=== PATIENT | female | born 1950 | race Caucasian/White ===

== ENCOUNTER 2019-02-09 07:36 | Day surgery (SDC) | payer OTHER ==
[2019-02-09 08:11] LABS: Absolute Lymphocytes (CBC) 2.4 K/uL (0.7-4.9)
[2019-02-09] MEDS ORDERED: CEFAZOLIN/SWI 1gm 1 GM/10 ML SYR ONE (08:12)
[2019-02-09] MEDS ORDERED: Ringers Lactate 1,000 ML IV ONE (08:12)
[2019-02-09 08:13] LABS: Urine Appearance CLOUDY; Urine Blood NEGATIVE (NEG); Urine Color ORANGE; Urine Glucose NEGATIVE (NEG); Urine Protein NEGATIVE (NEG); Urine Specific Gravity 1.025 (1.005-1.030)
[2019-02-09 08:18] LABS: Urine Bilirubin NEG (NEG)
[2019-02-09 08:19] LABS: Urine Microscopic Reflex ORDER UMIC
[2019-02-09 08:21] LABS: Basophils % 1.5 % (0-1.3); Hematocrit 39.2 % (36.0-45.0); Lymphocytes % 27.4 % (15.3-44.8); MPV 7.3 fL (7.6-11.3); RBC Red Blood Cell Count 4.72 M/uL (3.86-4.86)
[2019-02-09] MEDS ORDERED: PROPOFOL 200 MG/20 ML VIAL IV ONE (08:34)
[2019-02-09] MEDS ORDERED: FENTANYL CITR 100 MCG/2 ML ONE (08:34)
[2019-02-09] MEDS ORDERED: MIDAZOLAM HCL 2 MG/2 ML INJ ONE (08:35)
[2019-02-09] MEDS ORDERED: LIDOCAINE 1% MPF 5 ML VIAL ONE (08:35)
[2019-02-09 08:42] LABS: Urine Bacteria <20 /HPF (<20); Urine Culture Reflex Order REFLEXED; Urine RBC <5 /HPF (NONE SEEN)
--- NOTE | 2019-02-09 08:51 | RAD REPORT ---
EXAM DESCRIPTION: RAD - Hand Left 3 View - 02/09/2019 8:39 am CLINICAL HISTORY: pre op patient in SDS room 5 Hand pain COMPARISON: Hand Left 3 View dated 03/31/2017 FINDINGS: Mild osteoarthritic changes involve the radiocarpal joint. Multi joint icof-jg-jhegsocv ar thritic changes involve the PIP and DIP joint. No fracture, dislocation or aggressive marrow lesion.
--- NOTE | 2019-02-09 08:52 | RAD REPORT ---
EXAM DESCRIPTION: RAD - Hand Right 3 View - 02/09/2019 8:39 am CLINICAL HISTORY: pre op sds room 5 Hand pain COMPARISON: Hand Right 3 View dated 03/31/2017 FINDINGS: Mild osteoarthritic changes are present. Moderate DIP and PIP osteoarthritis is noted. No acute fracture, dislocation or aggressive marrow lesion.
--- NOTE | 2019-02-09 08:52 | RAD REPORT ---
EXAM DESCRIPTION: RAD - Chest Single View - 02/09/2019 8:39 am CLINICAL HISTORY: pre op Chest pain. COMPARISON: Chest Pa And Lat (2 Views) dated 04/08/2017; Chest Pa And Lat (2 Views) dated 03/18/2017; Chest Pa And Lat (2 Views) dated 03/02/2016 FINDINGS: Portable technique limits examination quality. The lungs are emphysematous but grossly clear. The heart is normal in size. No displaced fractures. IMPRESSION: COPD.
[2019-02-09] MEDS ORDERED: ONDANSETRON 4 MG/2 ML VIAL ONE (09:08)
[2019-02-09] MEDS ORDERED: KETOROLAC 30 MG/ML INJ ONE (09:08)
[2019-02-09] MEDS: HYDROMORPHONE HCL 1 MG/ML INJ ONE ×5 (09:49→10:09)
[2019-02-09 11:08] VITALS: BP 90/51; TEMP 97.8; O2SAT 92
--- NOTE | 2019-02-09 17:24 | EKG ---
Test Date: 2019-02-09 Test Time: 07:54:10 Sheet Metal Supervisor: DIANE MEASUREMENT RESULTS: Intervals: Rate: 71 NH: 172 QRSD: 82 QT: 446 QTc: 484 Makinen: P: 54 NH: 172 QRS: -12 T: 43 INTERPRETIVE STATEMENTS: Normal sinus rhythm Normal ECG Compared to ECG 04/08/2017 15:06:57 T-wave abnormality no longer present Prolonged QT interval no longer present Electronically Signed On 02-09-19 17:21:46 VENDING SUPERVISOR by Ruben Chamorro
--- NOTE | 2019-02-09 20:33 | OP ---
Surgeon: Emiliano Marie MD Preoperative Diagnosis: Left middle finger triggering. Postoperative Diagnosis: Left middle finger triggering. Procedure Performed: A1 amador release. Anesthesia: General. Procedure In Detail: After satisfactory induction of general anesthesia, left hand prepped with Beta dine scrub, Betadine paint, dry sterile drapes applied in the usual manner. The arm was elevated, ex sanguinated with Esmarch. Tourniquet inflated to 250 mmHg. Hand placed on the [place] table. A fel t-tip marking pen was used to outline the incision over the A1 amador. Scalpel used on skin. Dissec tion proceeded down. Ragnell retractor placed. A1 amador was identified, incised with a scalpel. T he tendons were again grasped and delivered through the wound, put through range of motion. No farhan ering. There was inflammation of the tendons with red discoloration consistent with the triggering f lashae. Tourniquet was released. Electrocautery used for hemostasis. Wound closed with 4-0 Prolene vertical mattress simple sutures. Dressed with Xeroform, 2 inch Dianna. The patient tolerated the pr ocedure well and returned to recovery. TUTU/JASWANT Voice ID: [id number] Report ID: [id number]
--- OUTSIDE RECORDS SUMMARY | 2019-02-13 02:41 | XMS REPORT ---
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 without prior episode Assessment Pain of finger of left hand M79.645 Active Assessment Swelling of finger joint of left M25.442 Active hand Problem Abnormal mammogram R92.8 Active Problem Cervical radiculopathy M54.12 Active Problem GERD without esophagitis K21.9 Active Problem Pancolitis K51.00 Active Problem Chronic obstructive pulmonary J44.9 Active disease, unspecified COPD type Problem Depression F32.9 Active Problem Hypothyroidism E03.9 Active Problem Familial hypercholesterolemia E78.01 Active Problem Hyperlipidemia, mixed E78.2 Active Problem Chronic lower back pain M54.5 Active Problem Hyperlipidemia E78.5 Active Problem Myocardial infarction I21.3 Active Problem H/O: CVA (cerebrovascular accident) Z86.73 Active Problem Endometrial cancer C54.1 Active Medications Medication Code Code Instructions Start End Status Dosage System Date Praluent [facility][NOTE 3] 78099468439 75 MG/ML Active 1 im Subcutaneous every 2 weeks Synthroid ND 61766710810 50 MCG Orally Dec 08, Active 1 tablet on Once a day 2018 an empty stomach in the morning (200 + 50 mcg) Prozac [facility][NOTE 3] 42126609412 40 MG Orally Active 1 capsule Once a day Ultram [facility][NOTE 3] 96641327322 50 MG Orally Active 1 tablet as every 6 hrs needed Symbicort ND 78000811215 160-4.5 MCG/ACT Active 2 puffs Inhalation Twice a day Ventolin HFA ND 39092055797 90 MCG/ACT Active 2 puffs as Inhalation every needed 6 hrs Synthroid [facility][NOTE 3] 94355105665 200 MCG Orally Active 1 tablet on Once a day an empty stomach in the morning ( 200 + 50 mcg) Prolia [facility][NOTE 3] 40866708636 60 MG/ML Active as directed Subcutaneous Results No Known Results Summary Purpose eClinicalWorks Submission
--- OUTSIDE RECORDS SUMMARY | 2019-02-13 02:41 | XMS REPORT ---
:1950 [facility] Address [address] [place] [address] Dr. Doe [address] [place] [id number] Care Team Providers Name Role Phone Unavailable Unavailable Unavailable Problems This patient has no known problems. Allergies, Adverse Reactions, Alerts This patient has no known allergies or adverse reactions. Medications This patient has no known medications.
== END 2019-02-09 11:15 | disposition home or self-care (01) ==
LOC: OR 07:36
PROVIDERS: ATTEND Specialist
PROC: 0LN80ZZ Release Left Hand Tendon, Open Approach (ICD-10-PCS; principal; 2019-02-09 09:00)
DX: M65.332 Trigger finger, left middle finger (principal); M32.9 Systemic lupus erythematosus, unspecified; E07.9 Disorder of thyroid, unspecified
CPT/HCPCS: 26055; 93005; 87088; 85025; 87086; 36415; 71045; 73130 ×2; J2704; J2250; J3010; J1170 ×2; J0690; J7120; J2405; 81003; 81015

== ENCOUNTER 2019-10-20 09:23 | Day surgery (SDC) | payer OTHER ==
--- NOTE | 2019-10-19 15:23 | RAD REPORT ---
EXAM DESCRIPTION: Jennifer Julien And Abimbola (2 Views)10/19/2019 2:49 pm CLINICAL HISTORY: Preop. COPD COMPARISON: 2019 FINDINGS: Lungs are mildly hyperaerated The lungs appear clear of acute infiltrate. The heart is normal size IMPRESSION: No acute abnormalities displayed
[2019-10-19 15:24] LABS: Urine Appearance CLEAR; Urine Bilirubin NEGATIVE (NEG); Urine Blood NEGATIVE (NEG); Urine Color YELLOW; Urine Glucose NEGATIVE (NEG); Urine Protein NEGATIVE (NEG); Urine Urobilinogen 0.2 mg/dL (0.2-1.0)
[2019-10-19 15:28] LABS: Urine Microscopic Reflex NO UMIC
[2019-10-19 15:39] LABS: Absolute Lymphocytes (CBC) 3.3 K/uL (0.7-4.9); Basophils % 0.5 % (0-1.3); Hematocrit 40.8 % (36.0-45.0); Lymphocytes % 28.3 % (15.3-44.8); MPV 7.9 fL (7.6-11.3); RBC Red Blood Cell Count 4.86 M/uL (3.86-4.86)
--- OUTSIDE RECORDS SUMMARY | 2019-10-20 09:33 | XMS REPORT | Clinical Summary ---
:1950 Author Organization [facility] Address [address] [place] [id number] Care Team Providers Name Role Phone Biju Pineda Primary Care Provider Allergies Active Allergy Reactions Severity Noted Date Comments [place]aine Other (See Comments) 08/14/2016 SEIZURE Medications Medication Sig Dispensed Refills Start Date End Date Status FLUoxetine (PROzac) 40 Take 40 mg by 0 Active MG capsule mouth daily. levothyroxine Take 175 mcg by 0 Active (SYNTHROID, LEVOXYL) 175 mouth every mcg tablet morning. ALIROCUMAB (PRALUENT PEN Inject under the 0 Active SUBQ) skin every 14 (fourteen) days. Active Problems Not on file Family History Medical History Relation Name Comments No Known Problems Brother No Known Problems Brother No Known Problems Brother No Known Problems Brother Uterine cancer Daughter Cancer Father SMALL CELL CARCI NOMA Cancer Mother SMALL CELL CARCI NOMA No Known Problems Sister Heart failure Sister No Known Problems Sister No Known Problems Sister CABG/Stent Son Diabetes Son Heart attack Son Relation Name Status Comments Brother Alive Brother Alive Brother Alive Brother Alive Daughter Alive Father Mother Sister Alive Sister Alive Sister Alive Sister Alive Son Alive Social History Tobacco Use Types Packs/Day Years Used Date Former Smoker Cigarettes Quit: 04/05/19 17 Alcohol Use Drinks/Week oz/Week Comments No Sex Assigned at Date Recorded Not on file Job Start Date Occupation Industry Not on file Not on file Not on file Travel History Travel Start Travel End No recent travel history available. Last Filed Vital Signs Not on file Plan of Treatment Health Maintenance Due Date Last Done Comments BREAST CANCER SCREENING 2001 COLONOSCOPY SCREENING 2001 SHINGLES VACCINES (#1) 2001 65+ PNEUMOCOCCAL VACCINE (1 of 2 - PCV13) 02/20/2016 INFLUENZA VACCINE 11/04/2019 Implants Implanted Type Area Sales Correspondence Clerk Device Shelf Model / Identifier Expiration Serial / Lot Date Lens Iol Bicnvx 1pc Acryl +21.5d 6x13mm Tecnis - [id number] - [id number] Intraocular Right: ADVANCED 06/04/2018 [id number] / Implanted: Qty: 1 on 09/01/2016 by Mark Ha MD at [facility] Lens Implant Eye [employer] [id number] / INC [id number] Lens Iol Bicnvx 1pc Acryl +22.0d 6x13mm Tecnis - [id number] Intra ocular ADVANCED [id number] 22 0 / Implanted: Qty: 1 on 09/08/2016 by Mark Ha MD at [facility] Lens Implant [employer] / [employer] Results Not on fileafter 10/19/2018 Insurance Payer Benefit Plan / Subscriber ID Effective Phone Address T ype Group Dates MEDICARE MEDICARE PART xxxxxxxxxx 2016-Pre [place], [place] Medicare A AND B sent COMMERCIAL MISC MISC xxxxxxxxxxxxxx 2016-Pre Commercial COMMERCIAL sent Advance Directives For more information, please contact: [phone] Type Date Recorded Patient Pool Hall Inspector Explanati on Advance Directives, Living Will and Medical Power of Account Installation Specialist
--- OUTSIDE RECORDS SUMMARY | 2019-10-20 09:35 | XMS REPORT | Continuity of Care Document ---
:1950 Author Organization [facility] Information Flud Care Team Providers Name Role Phone iCopyright Unavailable Un available Problems Problem Status Onset Classification Date Comments Sourc e Date Reported DX: Active 05/22/19 J47.1=BRONCHIECTAS 20 [place] IS WITH (ACUTE) EX PFT --- CT CHEST Active 05/23/19 WO CONTRAST DX: 19 [place] CHRONIC Generalized 06/06/19 09/07/2017 OPID abdominal 18 [place] tenderness Abnormal reflex 05/13/19 08/14/2017 OPID 18 [place] E66.9, Z71.3, Active 04/19/19 Memori [facility] R11.2 18 [place] ABD PAIN Active 08/29/19 13 [place] NERUOLOGY, Active 08/29/19 DIZZINESS WITH [address] [place] [address] 536.8/787.99/V76.5 Active 01/07/20 M H 1 11 [place] UNK Active 01/07/20 11 [place] Dietary counseling 07/30/[address] [facility] Hypothyroidism Resolved Problem 05/28/2019 (disorder) [place], [place], M H OPID [place] Lupus Resolved Problem 05/28/2019 erythematosus [place], (disorder) [place] ,M H OPID [place] Cerebrovascular Resolved Problem 05/28/2019 accident [place], H (disorder) [place] ,M H OPID [place] Obesity, 09/07/2017 unspecified [place] , OPID [place] Other specified 09/07/2017 OPID diseases of liver [place] Umbilical hernia 09/07/2017 OPID without [place] obstruction or gangrene Benign neoplasm of 09/07/2017 OPID left adrenal gland [place] Body mass index 09/07/2017 (BMI) 32.0-32.9, [place], adult OPID [place] Acquired absence 09/07/2017 [place] of other specified [place] parts 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, cervical region Hypothyroid Resolved Problem 08/31/2012 [place] Lupus Resolved Problem 08/31/2012 [place] Stroke Resolved Problem 08/31/2012 [place] DIZZINESS AND Active MH GIDDINESS [place] OBESITY, Active [facility] UNSPECIFIED [place] DIETARY COUNSELING Active [facility] AND SURVEILLANCE Her martinez NAUSEA WITH Active [facility] VOMITINGNeil UNSPECIFIED SHORTNESS OF Active BREATH [place] CHRONIC Active MH OBSTRUCTIVE [place] PULMONARY DISEASE W BRONCHIECTASIS Active MH WITH (ACUTE) [place] EXACERBATION Medications Medication Details Route Status Patient Ordering Order Source Instructions Provider Date aspirin 81 mg 81 mg, 1 tab, PO Active [facility] MH tablet, PO, Daily, enteric with food, 14 coated tab, Substitution Allowed, ECTABwith food Antivert 25 25 mg, 1 tab, PO Active [facility] MH mg oral PO, Q6H, 4 [facility] tablet tab, Substitution Allowed aspirin 325 325 mg, 1 tab, PO No [facility] MH mg tablet, Route: PO, [facility] enteric Drug form: Active coated ECTAB, Daily, Dosing Weight 63.636, kg, Start date: 08/29/12 4:17:00, Duration: 30 day, Stop date: 09/27/12 9:00:00 morphine 2 mg, 1 mL, IVP No [facility] Sulfate Route: IVP, [facility] Drug form: Active INJ, ONCE, Dosing Weight 63.636, kg, Priority: STAT, Start date: 08/29/12 4:07:00, Stop date: 08/29/12 4:07:00 meclizine 12.5 mg, 1 PO No [facility] MH tab, Route: [facility] PO, Drug form: Active TAB, Q8H, Dosing Weight 63.636, kg, Priority: STAT, Start date: 08/29/12 4:07:00, Duration: 30 day, Stop date: 09/28/12 0:00:00 Zofran 4 mg, 2 mL, IVP No [facility] Route: IVP, [facility] Drug form: Active INJ, Q4H, Dosing Weight 63.636, kg, PRN Nausea, Priority: STAT, Start date: 08/29/12 4:07:00, Duration: 30 day, Stop date: 09/28/12 4:06:00 labetalol 10 mg, 2 mL, IVP No [place] Route: IVP, [address] Drug form: Active INJ, Q10Min, Dosing Weight 63.636, kg, PRN Hypertension, Start date: 08/29/12 4:07:00, Duration: 30 day, Stop date: 09/28/12 4:06:00, For SBP > 180mmHg and/or DBP > 105mmHg enoxaparin 63.636 mg, SUB-Q No [facility] Route: SUB-Q, [address] Drug form: Active INJ, ONCE, Dosing Weight 63.636, kg, Priority: STAT, Start date: 08/29/12 3:42:00, Stop date: 08/29/12 3:42:00 meclizine 25 mg, Route: PO No [facility] PO, Drug form: [address] TAB, ONCE, Active Dosing Weight 63.636, kg, Priority: STAT, Start date: 08/29/12 0:48:00, Stop date: 08/29/12 0:48:00 ondansetron 4 mg, Route: IVP No [facility] IVP, ONCE, [facility] Dosing Weight Active 63.636, kg, Priority: STAT, Start date: 08/29/12 0:48:00, Stop date: 08/29/12 0:48:00 Saline Flush 5 ml, Route: IVP No [facility] 0.9% IVP, Drug [facility] Form: INJ, Active Dosing Weight 63.636, kg, PRN, PRN Line Flush, Start date: 08/29/12 0:48:00, Duration: 30 day, Stop date: 09/28/12 0:47:00 Tylenol 325 1 tab, PO, PO Active mg oral Q4H, PRN, 60 011 [place] tablet tab, Fever, Substitution Allowed Synthroid 125 1 tab, PO, PO Active mcg (0.125 Daily, 30 tab, 0[address] [place] mg) oral Substitution tablet Allowed, TAB Lactated 1,000 mL, IV No Carlos Ringers IV Rate: 40 Longer 011 [facility] 1,000 mL ml/hr, Infuse Active 1,000 mL over: 25 hr, Route: IV, Total Volume: 1,000, Start date: 01/22/11 7:01:00, Duration: 30 day, Stop date: 02/21/11 7:00:00 influenza 0.5 ml, Route: IM No [facility] virus IM, Drug form: Longer 006 [place] vaccine, INJ, Start Active inactivated date: 03/09/06 17:00:00, Stop date: 03/09/06 17:00:00 Allergies, Adverse Reactions, Alerts Substance Category Reaction Severity Reaction Status Date Comments S ource type Reported codeine Assertion Propensity Active MH to adverse [facility] reactions to drug Immunizations Immunization Date Site Status Last Comments Source Given Updated influenza virus Right completed [facility] vaccine, 6 deltoid [place],[facility] inactivated [facility], OPID [place]ie and influenza virus completed [facility] [place] vaccine, 6 inactivated Results Order Name Results Value Reference Date Interpretation Comments Lillie rce Range CHEMISTRY Total CK 113 12 - 191 08/29 Normal /2012 [facility] CHEMISTRY Troponin-I <0.02 0.00 - 08/29 Normal 0.40 [facility] CHEMISTRY CK MB Index 1.0 0.0 - 2.5 08/29 Normal [facility] CHEMISTRY CK MB 1.1 0.5 - 3.6 08/29 Normal [facility] Microbiolo Culture: 08/29 gy Urine /2012 [facility] URINALYSIS UA Protein Negative mg/dL Negative 08/29 Normal (08/29/2012 02:53:00) [place] URINALYSIS UA Glucose Negative mg/dL Negative 08/29 NA MH *NA* /2012 [facility] (08/29/2012 02:53:00) URINALYSIS UA Ketones Trace mg/dL Negative 08/29 ABN MH *ABN* /2012 [facility] (08/29/2012 02:53:00) URINALYSIS UA Bili Negative Negative 08/29 NA *NA* /2012 [facility] (08/29/2012 02:53:00) URINALYSIS UA pH 5.0 5.0 - 8.0 08/29 Normal [facility] URINALYSIS UA Mucus Few /LPF None Seen 08/29 NA *NA* /2012 [facility] (08/29/2012 02:53:00) URINALYSIS UA Blood Small Negative 08/29 ABN *ABN* /2012 [facility] (08/29/2012 02:53:00) URINALYSIS UA Leuk Est Trace Negative 08/29 ABN *ABN* [facility] (08/29/2012 02:53:00) URINALYSIS UA Nitrite Negative Negative 08/29 Normal (08/29/2012 02:53:00) [place] URINALYSIS UA RBC 1 0 - 2 08/29 Normal [facility] URINALYSIS UA Sq Epi Occasional /LPF Few 08/[address] [facility] *NA* [facility] (08/29/2012 02:53:00) URINALYSIS UA WBC 4 0 - 5 08/29 Normal [facility] URINALYSIS UA 0.1 - 1.0 08/[address] [facility] Urobilinogen [facility] URINALYSIS UA Spec Grav 1.018 <=1.030 08/29 Normal [facility] URINALYSIS UA Color Yellow Yellow 08/[address] [facility] *NA* [facility] (08/29/2012 02:53:00) URINALYSIS UA Turbidity Clear Clear 08/29 Normal (08/29/2012 02:53:00) [facility] CK 118 12 - 191 08/29 Normal [facility] CHEMISTRY CK MB 0.6 0.5 - 3.6 08/29 Normal [facility] CHEMISTRY Troponin-I <0.02 0.00 - 08/29 Normal 0.40 [facility] CHEMISTRY eGFR 61 08/29 NA <sup>1</sup>R esult [place] Comment: The eGFR is calculated using the CKD-EPI formula. In most young, healthy individuals the eGFR will be >90 mL/min/1.73m2 . The eGFR declines with age. An eGFR of 60-89 may be normal in some populations, particularly the elderly, for whom the CKD-EPI formula has not been extensively validated. Use of the eGFR is not recommended in the following populations:& lt;br/>
I ndividuals with unstable creatinine concentration s, including patients and those with serious co-morbid conditions.<b r/>
Patie nts with extremes in muscle mass or diet.

The data above are obtained from the National Kidney Disease Education Program (NKDEP) which additionally recommends that when the eGFR is used in patients with extremes of body mass index for purposes of drug dosing, the eGFR should be multiplied by the estimated BMI. CHEMISTRY ALT 28 0 - 65 08/29 Normal [facility] CHEMISTRY Albumin Lvl 3.8 3.5 - 5.0 08/29 [facility] CHEMISTRY AGAP 11.5 10.0 - 08/29 Normal MH 20.0 [facility] CHEMISTRY AST 22 0 - 37 08/29 [facility] CHEMISTRY Bili Total 0.3 0.2 - 1.3 08/29 [facility] CHEMISTRY Alk Phos 79 39 - 136 08/29 [facility] CHEMISTRY B/C Ratio 19 6 - 25 08/29 [facility] CHEMISTRY A/G Ratio 1.0 0.7 - 1.6 08/29 [facility] CHEMISTRY Globulin 3.9 2.0 - 4.0 08/29 [facility] CHEMISTRY Total 7.7 6.4 - 8.4 08/29 Normal [facility] CHEMISTRY Calcium Lvl 8.9 8.5 - 10.5 08/29 [facility] CHEMISTRY CO2 26 24 - 32 08/29 [facility] CHEMISTRY Creatinine 1.0 0.5 - 1.4 08/29 [facility] CHEMISTRY BUN 19 7 - 22 08/29 [facility] CHEMISTRY Glucose Lvl 105 70 - 99 08/29 HI <sup>2</sup>I nterpretive [facility] Data: Adult reference range values reflect the clinical guidelines
of the [place] [employer]. CHEMISTRY Potassium 3.5 3.5 - 5.1 08/29 Normal MH [facility] CHEMISTRY Sodium Lvl 140 135 - 145 08/29 [facility] CHEMISTRY Chloride Lvl 106 95 - 109 08/29 [facility] CHEMISTRY CK MB Index 0.5 0.0 - 2.5 08/29 [facility] HEMATOLOGY MCHC 33.2 32.0 - 08/29 Normal 36.0 /2012 [facility] HEMATOLOGY RDW 14.7 11.5 - 08/29 HI 14.5 /2012 [facility] HEMATOLOGY Platelet 301 133 - 450 08/29 Normal /2012 [facility] HEMATOLOGY MPV 6.9 7.4 - 10.4 08/29 LOW /2012 [facility] HEMATOLOGY Hgb 13.9 12.0 - 08/29 Normal 16.0 /2012 [facility] HEMATOLOGY WBC 12.2 3.7 - 10.4 08/29 HI /2012 [facility] HEMATOLOGY RBC 4.73 4.20 - 08/29 Normal MH 5.40 /2012 [facility] HEMATOLOGY MCH 29.3 27.0 - 08/29 Normal 31.0 /2012 [facility] HEMATOLOGY MCV 88.3 81.0 - 08/29 Normal 99.0 /2012 [facility] HEMATOLOGY Hct 41.8 36.0 - 08/29 Normal 48.0 /2012 [facility] HEMATOLOGY Lymphocytes 21.0 20.0 - 08/29 Normal 40.0 /2012 [facility] HEMATOLOGY Segs 72.5 45.0 - 08/29 Normal 75.0 /2012 [facility] HEMATOLOGY Monocytes 4.2 2.0 - 12.0 08/29 Normal /2012 [facility] HEMATOLOGY Basophils 0.5 0.0 - 1.0 08/29 Normal /2012 [facility] HEMATOLOGY Lymphocytes 2.6 1.0 - 5.5 08/29 Normal # /2012 [facility] HEMATOLOGY Eosinophils 1.8 0.0 - 4.0 08/29 Normal /2012 [facility] Segs-Bands # 8.8 1.5 - 8.1 08/29 HI /2012 [facility] Basophils # 0.1 0.0 - 0.2 08/29 Normal [facility] HEMATOLOGY Monocytes # 0.5 0.0 - 0.8 08/29 Normal /2012 [facility] HEMATOLOGY Eosinophils 0.2 0.0 - 0.5 08/29 Normal /2012 [facility] Pathology Reports No Data Provided for This Section Diagnostic Reports Report Value Date Source Chest wo contrast CT Radiation Dose CTDIVOL = 0 (mGy): DLP = 160.16 (mGy-cm) 05/26/2019 [facility] PROCEDURE INFORMATION: Exam: CT Chest Without Contrast Exam date and time: 05/26/2019 10:26 AM Age: 69 years old Clinical indication: /bronchiectasis. Follow up for pneumonia and other lung issues. TECHNIQUE: Imaging protocol: Computed tomography of the chris st without contrast. Total DLP: 160.16 mGy-cm Radiation optimization: All CT scans at this facility use at least one of these dose optimization techniques: automated exposure control; mA and/or kV adjustment per patient size (includes targeted e xams where dose is matched to clinical indication); or iterative reconstructio n. COMPARISON: CHEST WO CONTRAST CT 05/31/2018 2:59 PM CHEST WO CONTRAST CT 09/09/2017 2:01 PM FINDINGS: Lungs: There is evidence of mild centrilobular e mphysema. There are areas of mild stable linear scar formation and subtle dede und-glass attenuation on both sides. No mass or consolidation. Mild br onchiectasis. No significant bronchial wall thickening. Localized ground-glass attenuat ion is again demonstrated within the superior segment of the right lower lobe with estimated diameter of 8 mm. There is suggestion 3 mm solid component a long the right lateral aspect of this region on axial image 108 of ser ies 4 which is not definitely apparent on prior exams. Pleural space: No pleural abnormality. Heart: Mild coronary artery calcification. No pe ricardial disease. Mediastinum: No mass or inflammation. Aorta: Mild atherosclerotic calcification is dem onstrated within the aorta. Lymph nodes: No enlarged lymph nodes. Liver: An incidental left hepatic cyst is noted. Gallbladder and bile ducts: The gallbladder is a bsent. Bones/joints: Other than degenerative changes, t he bones are intact. No acute skeletal process or focal bone lesion. Soft tissues: No significant abnormality within the extra thoracic soft tissues. Other findings: There is a s table circumscribed density on the same image which may be calcified. IMPRESSION: 1. Centrilobular emphysema. 2. Stable diameter of a ground-glass nodule prev iously described within the superior segment of the righ t lower lobe with interval development of a solid 3 mm component since 05/31/2018. Follow-up CT is r ecommended in 6 months. 3. Mild bronchiectasis with areas of stable mild parenchymal scarring. Jose Lorenzo MD On 05/27/2019 08:44:50; -[facility] [id number] Abdomen w IV contrast Clinical indication: - abnormal CT sc an, liver cyst 10/31/[address] [place] [address] Comparison: CT abdomen pelvis 06/01/2017 TECHNIQUE: Volumetric CT acq uisition of the abdomen after the intravenous administration of contrast, in the arterial and venous phases of contrast enhancement. Axial, coronal and sagittal reconstructions. IV contrast: 150 mL Omnipaque 300 Enteric contrast: Water CT imaging performed at this location utilizes radiation dose optimization techniques which include one or more of the following: -Automated exposure control -Adjustment of the mA and/or kV according to pat ient size -Use of iterative reconstruction technique CT Radiation Dose DLP 596.54 mGy-cm FINDINGS: LOWER THORAX: Lipomatous hyp ertrophy of the interatrial septum in the heart is noted. LIVER: A lobulated cyst in h epatic segment 4B measures 1.7 x 1.7 cm, stable in size from the prior exam. There is an adjacent 0.6 cm hypodense lesion which is too small to characterize (series 2 image 1 13), which is stable and likely represents a hep atic cyst. BILIARY TREE: No intra- or extrahepatic biliary ductal dilation. GALLBLADDER: The gallbladder is surgically absen t. PANCREAS: Normal enhancement of the pancreatic p arenchyma. SPLEEN: Normal. ADRENALS: A 1 cm left adrena l nodule is incompletely characterized on this exam, but was previously characterized as an adrenal adenoma on prior noncontrast CT. No significant change in size from the prior exam. The right adrenal is unremarkable. KIDNEYS AND URETERS: The kid neys demonstrate symmetric uptake of intravenous contrast. There is no hydronephrosis. GASTROINTESTINAL TRACT: The stomach is unremarkable. A small periampullary duodenal diverticulum is seen. Visualized portions of small bowel are normal in caliber. Visualized portions of the colon are unremarkable. PERITONEUM AND RETROPERITONE UM: No ascites or free air. No other fluid collection. LYMPH NODES: No abdominal lymphadenopathy. VASCULATURE: Mild aortic ath erosclerotic calcifications are present. The main portal vein is patent. The IVC is unremarkable. BONES: No acute osseous abnormality. SOFT TISSUES: A fat-containing supraumbilical ve ntral hernia is present. IMPRESSION: 1. Stable hepatic cysts. 2. Fat-containing supraumbilical ventral hernia . 3. Stable adrenal adenoma. 4. Small periampullary duodenal diverticulum. SL: [id number] Chest wo contrast CT CLINICAL INDICATION: 68 year s old Female with - R06.02 Shortness of breath, J44.1 Chronic obstructive pulmonary disease with (acute) exacerbation. 05/31/2018 [facility] COMPARISON: CT chest 09/09/2017 TECHNIQUE: Sequential trans- axial images were obtained through the chest and upper abdomen without intravenous contrast. Coronal and sagittal reconstructions were obtained. CT imaging performed at this location utilizes radiation dose optimization techniques which include one or more of the following: -Automated exposure control -Adjustment of the mA and/or kV according to pat ient size -Use of iterative reconstruction technique CT Radiation Dose DLP 237 mGy-cm FINDINGS: LOWER NECK AND SOFT TISSUES: No enlarged lymph n ode is seen. MEDIASTINUM: Normal size of the heart is noted. Minimal coronary artery calcifications. No pericardial effusion is identified. The thoracic aorta is normal in caliber. Minimal calcification in the aorta and proximal great vessels. PULMONARY PARENCHYMA: Mild e mphysematous changes. Pleural parenchymal band in the anterior right upper lobe likely representing scarring/subsegmental atelectasis. Mild scarring in the right middle lobe and lingula. Stable mild sca rring in the superior left lower lobe. No focal consolidation is seen. Stable 8 mm ground glass nodule in the right lower lobe (series 4, image 62) with adjacent calcified gr anuloma. Small patch of sub pleural groundglass in the left lower lobe (series 4, image 71). A few additional scattered regions of vague groundglass opacity are noted in the bilateral lower lobes. No pleural effusion or pneumothorax is identified. UPPER ABDOMEN: Prior cholecy stectomy. 2.0 cm liver cyst. Visualized upper abdominal structures are otherwise unremarkable in appearance. MUSCULOSKELETAL: No acute os seous abnormality is seen. No destructive lytic or blastic osseous lesion is noted. Degenerative changes in the spine. IMPRESSION: 1. Mild emphysema. 2. Minimal scattered fibrotic changes and scarri ng, not significant changed. 3. A few regions of subtle p atchy groundglass noted scattered in the bilateral lower lobes which may represent a mild pneumonitis. 4. Stable ground glass nodul e in the superior right lower lobe. Follow-up CT suggested in 1 year to document stability/resolution. SL: [id number] Chest wo contrast CT CT THORAX WITHOUT IV CONTRAST 09/09/2017 JEM DUMONT [place] HISTORY: ; J44.1 Chroni c obstructive pulmonary disease with (acute) exacerbation;J84.10 Pulmonary fibrosis, unspecified; R06.02 Shortness of breath - SOB with cough and congestion for the past 3 months; TECHNIQUE: Multiple contiguo us axial images of the chest were performed. Coronal and sagittal reformatted images were obtained. IV CONTRAST: No. CT Radiation Dose: DLP = 447.46 mGy-cm COMPARISON: CT abdomen/pelvi s dated 06/01/2017 and chest radiography dated 03/08/2006 FINDINGS: LUNGS AND PLEURA: The lungs are mildly emphysematous. Mild fine interstitial fibrotic scarring in the bilateral upper lungs. No subpleural fibrosis. No parenchymal architectural distortion. No pulmonary honeycombing. Mild linear s carring or atelectasis in the right middle lobe and lingula. No tree-in-bud interstitial opacities to suggest chronic small airway infection/inflammation. No bronchiectasis. No endobronchial mucous plug ging. No airspace infiltrate to suggest pneumonia or pulmonary edema. No suspicious pulmonary nodule. No pleural effusion or pneumothorax. MEDIASTINUM: No mediastinal mass, adenopathy, or fluid collection. Trace aortic and great vessel origin atherosclerotic calcification. Heart size normal. No pericardial effusion. BASE OF NECK, UPPER ABDOMEN, SOFT TISSUES, AND BONES: Thyroid gland is mildly atrophic. Neck base soft tissues are otherwise normal. The visualized portion of the upper abdominal contents demonstrates c holecystectomy and a small b enign liver cyst. No acute osseous abnormality or aggressive osseous lesion. IMPRESSION: 1. Mild emphysema. 2. Mild fine interstitial fi brotic scarring in the upper lungs. No subpleural fibrosis, subpleural honeycombing, or architectural distortion. 3. Mild linear scarring or atelectasis in the ri ght middle lobe and lingula. 4. Mild atrophy of the thyro id gland, trace atherosclerotic calcification, and cholecystectomy. SL: [id number] Abdomen/Pelvis w/wo CT ABDOMEN/PELVIS WITHOUT AND WITH IV CONTRA ST 06/01/2017 TIM [place] IV contrast CT HISTORY: Generalized abdomin al tenderness; 67 year old female reports upper abdominal pain, diarrhea, rectal bleeding, history of cholecystectomy TECHNIQUE: Axial imaging of abdomen and pelvis with multiplanar reformations. IV CONTRAST: 100cc Omnipaque. GI CONTRAST: Yes. CT Radiation Dose: DLP = 2219.58 mGy-cm COMPARISON: None available. FINDINGS: LOWER CHEST: The lung bases are clear. LIVER, BILIARY, PANCREAS, SP SAMIRA, AND ADRENALS: Small benign cyst in the right hepatic lobe inferiorly measures 2.0 cm. The liver is otherwise normal. Cholecystectomy is noted. No biliary dilation. The spleen, pancreas, and right adrenal gland are normal. There is a small 0.9 cm benign adenoma of the left adrenal gland (noncontrast Hounsfield density -13). GENITOURINARY: Normal kidney s. No urinary calculus. No hydronephrosis. Normal urinary bladder. Changes of hysterectomy. STOMACH AND BOWEL AND APPEND IX: Normal stomach and duodenum. Normal small bowel. No bowel obstruction. Evaluation of the rectum, sigmoid colon, and left colon is limited by colonic decompression. There is suggestion of mild diffus e colonic wall thickening and mucosal hyperenhancement suspicious for a mild colitis. No pericolonic inflammatory fat stranding. No abscess or evidence of perforation. No large bowel obstruction. Appendix not visualized. OTHER SOFT TISSUES, VESSELS, AND BONES: There is a small fat-containing umbilical hernia which measures 3 x 2 x 2 cm. No ascites, adenopathy, or pneumoperitoneum. Trace aortoiliac calcification. No acut e osseous abnormality or aggressive osseous lesi on. IMPRESSION: 1. Probable mild diffuse col onic wall thickening with mild mucosal hyperenhancement suggestive of mild pancolitis. Findings suspicious for inflammatory bowel disease or possibly infectious colitis. Recommend correlation with colonoscopy. 2. Small benign liver cyst, cholecystectomy, small benign left adrenal adenoma, hysterectomy, small fat-containing umbilical hernia, trace aortoiliac calcification. SL: [id number] Spine cervical wo Patient Name: ZA GARCES 05/08/2017 TIM [place] contrast MRI : 1950; Age: 67 years y/o Female MR: [id number] Study: Spine cervical wo contrast MRI 05/08/2017 9 :07 AM [facility] Ordering Physician: Aide Bliss MD Clinical Indication: R29.2 Abnormal reflex -neck and left shoulder pain for complete of months.; Comparison: None TECHNIQUE: Multiplanar T1, T 2, and STIR weighted MRI of the cervical spine is performed. FINDINGS: There is 2 mm anterolisthesi s at C5-C6 and C6-C7. Otherwise, the alignment is maintained. The vertebral bodies are normal in height. The disc spaces are well- maintained. The marrow signal is unremarkab le. The craniocervical junct ion is unremarkable. The cervical cord is normal in signal and caliber. The paravertebral soft tissues are unremarkable. Changes by levels: C2-C3: There is no disc bulg e or herniation. There is no stenosis. The facet joints are unremarkable.. C3-C4: Moderate left facet a rthrosis and periarticular enhancement suggesting active inflammation/synovitis. Facet hypertrophic changes and mild uncovertebral arthrosis result in moderate left foraminal stenosis and possible impin gement of left C4 nerve root. No spinal canal stenosis. C4-C5: Mild facet arthrosis. No canal or foramin al stenosis. C5-C6: Mild facet arthrosis and trace anterolisthesis. No canal or foraminal stenosis. C6-C7: Minimal facet arthrosis and trace anterol isthesis. No stenosis. C7-T1: There is no disc bulg e or herniation. There is no stenosis. The facet joints are unremarkable. . IMPRESSION: Moderate left facet arthrosi s at C3-C4 with left foraminal narrowing and possible mass effect on left C4 nerve root. There is periarticular edema suggesting active synovitis. Mild degenerative changes at the other levels wi thout stenosis. Stomach emptying NM GASTRIC EMPTYING SCAN: 04/23/2017 Sandra Trejo HISTORY: Nausea and vomiting. TECHNIQUE: The patient inges mario eggs laced with 1 mCi of technetium 99m sulfur colloid. Anterior planar imaging over the stomach was done up to 3 hours. Quantitative values and time/activity curves were generated. FINDINGS: The T-1/2 is 68 mi nutes (normal less than 90 minutes). There is 31% emptying at 30 minutes, 48% emptying at 60 minutes, 65% emptying at 90 minutes, 81% emptying at 2 hours, and 96% emptying at 3 hours (times and percenta ges are approximated). The time/activity curve shows smooth curvilinear descent over the course of the study. IMPRESSION: Normal gastric emptying. [id number] Carotid artery BILATERAL CAROTID ULTRASOUND: 08/29/2012 [facility] bilateral Duplex US HISTORY: Rule out stroke. PROCEDURE: Triplex Doppler e valuation of the cervical carotid and vertebral arteries was done. Stenosis estimates are based on Consensus Panel Criteria. FINDINGS: There is no evidence of significant pl aque or dissection. The peak systolic velocity i n the right internal carotid artery is 65 cm/sec, with a right systolic velocity ratio of 0.8. The peak systolic velocity i n the left internal carotid artery is 96 cm/sec, with a left systolic velocity ratio of 0.9. Antegrade flow is demonstrated in the vertebral arteries. IMPRESSION: No evidence of significant carotid stenosis. SL:13 Brain wo contrast MRI MRI BRAIN WITHOUT CONTRAST 08/29/2012 [facility] CLINICAL INFORMATION: Vertigo. possible thrombus seen in MCA on CT. COMPARISON: CT head of this date. TECHNIQUE: Multiecho multipl gurjit images of the brain were done without contrast injection. FINDINGS: The ventricles, sulci and ci sterns are appropriate for age. There are a few scattered nonspecific T2/FLAIR signal abnormality likely reflecting minimal chronic small vessel ischemic change. No mass, he morrhage or collection is id entified. The pituitary gland is normal in size. The cerebellar tonsils are normal in position. There is no restricted diffusion. Normal T2 flow voids are present. IMPRESSION: 1. No definite acute infarct or intracranial hem orrhage. No mass or neoplasm. SL: 12 Brain without MRA BRAIN 08/29/2012 [facility] contrast MRA INDICATION: vertigo/possible thrombus seen in M CA on CT TECHNIQUE: 3D MRA time of flight images were do ne of the [place] of [place]. COMPARISON: MRI and CT brain of this date. FINDINGS: MRA BRAIN: The petrous, cavernous and s upraclinoid portions of the internal carotid arteries are normal in contour and caliber. The anterior, middle and posterior cerebral arteries are normal in shape. Small bila teral P-comm are present. Th e basilar artery is intact. There is no stenosis or branch occlusion. No aneurysm is identified. IMPRESSION: Grossly normal [place]. No evidence of an aneurysm. SL: [address] HEAD WITHOUT CONTRAST. 08/29/2012 [facility] CLINICAL INDICATION: Behavioral changes. DIZZY NAUSEA S/P KNEE SURGERY. COMPARISON: [None]. TECHNIQUE: Multiple contiguo us axial images of the brain were performed without IV contrast. FINDINGS: Nonspecific asymme tric hyperdense right MCA branch may be atherosclerotic change versus MCA branch thrombus. Ventricles and subarachnoid spaces are appropriate for age. No acute territorial in farction or intracranial hem orrhage. No extra-axial fluid collection. Han- white distinction is preserved. No mass, mass-effect, or midline shift. Visualized paranasal sinuses are unremarkable. IMPRESSION: Nonspecific asym metric hyperdense right MCA branch may be atherosclerotic change versus MCA branch thrombus. Please correlate clinically for neurologic symptoms. Otherwise, no acute intracranial process detected. SL: 12 Consultation Notes No Data Provided for This Section Discharge Summaries No Data Provided for This Section History and Physicals No Data Provided for This Section Vital Signs Vital Sign Value Date Comments Source BMI Calculated 30.73 05/31/2018 [facility] Weight 71.364 05/31/2018 [facility] Height 152.4 cm 05/31/2018 [facility] Heart Rate 56 08/29/2012 [facility] Temperature Oral (F) 98.3 F 08/29/2012 [facility] Rate 18 08/29/2012 [facility] Systolic (mm Hg) 102 08/29/[facility] Diastolic (mm Hg) 63 08/29/[address] Weight 63.63 08/29/2012 [facility] Height 162.5 cm 08/29/2012 [facility] Systolic (mm Hg) 109 08/29/2012 [facility] Resp[facility] Rate 18 08/29/2012 [facility] Heart Rate 54 08/29/2012 [facility] Temperature Oral (F) 98.1 F 08/29/2012 [facility] Diastolic (mm Hg) 72 08/29/[address] Respitory Rate 18 08/29/2012 [facility] Temperature Oral (F) 97.8 F 08/29/2012 [facility] Rate 52 08/29/2012 [facility] Diastolic (mm Hg) 70 08/29/[address] Systolic (mm Hg) 111 08/29/2012 [facility] Height 152.4 cm 08/29/2012 [facility] Weight 65 08/29/2012 [facility] Weight 63.636 08/29/2012 [facility] Height 162.56 cm 08/29/2012 [facility] Diastolic (mm Hg) 52.0 01/22/[address] Systolic (mm Hg) 94.0 01/22/2011 [facility] Rate 18.0 01/22/2011 [facility] Heart Rate 85.0 01/22/2011 [facility] Diastolic (mm Hg) 72.0 01/22/[address] Systolic (mm Hg) 113.0 01/22/2011 [facility] Respitory Rate 19.0 01/22/2011 [facility] Heart Rate 63.0 01/22/2011 [facility] Diastolic (mm Hg) 51.0 01/22/[address] Respitory Rate 18.0 01/22/2011 [facility] Systolic (mm Hg) 99.0 01/22/2011 [facility] Heart Rate 111.0 01/22/2011 [facility] Temperature Oral (F) 98.8 F 01/20/2011 [facility] Weight 58.182 01/20/2011 [facility] Height 152.4 cm 01/20/2011 [facility] Encounters Location Location Encounter Encounter Reason Attending ADM DC Stat us Source Details Type Number For Provider Date Date Visit GASTON [id number] DEBBIE 01/22 01/22 Discharg [facility] [address] [facility] OU [id number] NERUOLOG HERO BROOKS 08/29 08/29 Active [facility] 4 Y, /2012 [facility] [address] S WITH ABNORMAL CT [facility] Outpatient [id number] Debbie 04/23 04/24 [facility] 5 [facility] Outpt Diag [id number] Aide 05/08 05/09 [facility] 0 [facility] [place] [facility] Outpt Diag [id number] Debbie 06/01 06/02 [facility] Outpt Diag [id number] Rajesh Lechin 09/09 09/10 [facility] [place] [facility] Outpatient [id number] Rajesh Lechin 05/31 06/01 [facility] Outpt Diag [id number] Debbie 10/31 11/01 [facility] [place] [facility] Outpatient [id number] Rajesh Lechin 05/26 05/27 [facility] Procedures Procedure Code Date Perfomer Comments Source Arthroscopy of [id number] Hemalatha martinez, knee [facility], [facility] [place] Arthroscopy of [id number] [facility] knee Assessment and Plan No Data Provided for This Section Plan of Care No Data Provided for This Section Social History Social History Date Source Social History TypeResponse 05/27/2019 [facility] Social History TypeResponse 11/01/2018 [facility] [place] Social History TypeResponse 04/24/[address] [facility] Family History No Data Provided for This Section Advance Directives No Data Provided for This Section Functional Status No Data Provided for This Section
--- OUTSIDE RECORDS SUMMARY | 2019-10-20 09:37 | XMS REPORT ---
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 Problem Current mild episode of major F32.0 Active depressive disorder without prior episode Problem Pancolitis K51.00 Active Problem Abnormal mammogram R92.8 Active Problem Abnormal mammogram of left breast R92.8 Active Problem Hyperlipidemia, mixed E78.2 Active Problem Chronic lower back pain M54.5 Acti ve Problem Hyperlipidemia E78.5 Active Problem H/O: CVA (cerebrovascular accident) Z86.73 Active Problem Kidney stone N20.0 Active Problem Familial hypercholesterolemia E78.01 Active Problem Myocardial infarction I21.3 Active Problem Osteoporosis, unspecified M81.0 Ac tive osteoporosis type, unspecified pathological fracture presence Problem Endometrial cancer C54.1 Active Problem Chronic obstructive pulmonary J44.9 Active disease, unspecified COPD type Medications No Known Medications Results No Known Results Summary Purpose [employer] Submission
--- OUTSIDE RECORDS SUMMARY | 2019-10-20 09:37 | XMS REPORT ---
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 Assessment Current moderate episode of major F32.1 Active depressive disorder without prior episode Assessment Familial hypercholesterolemia E78.01 Active Assessment Fibromyalgia M79.7 Active Assessment Chronic obstructive pulmonary J44.9 Active disease, unspecified COPD type Assessment Osteoporosis, unspecified M81.0 Ac tive osteoporosis type, unspecified pathological fracture presence Assessment Ulcerative (chronic) pancolitis K51.00 Active without complications Problem Osteoporosis, unspecified M81.0 Ac tive osteoporosis type, unspecified pathological fracture presence Assessment Encounter for screening mammogram Z12.31 Active for malignant neoplasm of breast Problem Chronic obstructive pulmonary J44.9 Active disease, unspecified COPD type Assessment Medicare annual wellness visit, Z00.00 Active subsequent Problem Fibromyalgia M79.7 Active Problem Cervical radiculopathy M54.12 Activ e Problem GERD without esophagitis K21.9 Act tono Problem Current moderate episode of major F32.1 Active depressive disorder without prior episode Problem Noncompliance with dietary Z91.11 A ctive restriction Problem Hypothyroidism E03.9 Active Problem Depression F32.9 Active Problem 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 Problem Current mild episode of major F32.0 Active depressive disorder without prior episode Problem Pancolitis K51.00 Active Problem Abnormal mammogram R92.8 Active Problem Abnormal mammogram of left breast R92.8 Active Assessment Chronic lower back pain M54.5 Acti ve Problem Hyperlipidemia, mixed E78.2 Active Assessment Hypothyroidism E03.9 Active Problem Chronic lower back pain M54.5 Acti ve Problem Hyperlipidemia E78.5 Active Assessment Abnormal mammogram of left breast R92.8 Active Problem H/O: CVA (cerebrovascular accident) Z86.73 Active Problem Kidney stone N20.0 Active Problem Familial hypercholesterolemia E78.01 Active Problem Myocardial infarction I21.3 Active Problem Endometrial cancer C54.1 Active Medications Medication Code Code Instructions Start End Status Dosage System Date Date Synthroid [facility] 83974886491 300 MCG Orally Active 1 t ablet in the Once a day morning on an empty stomach (NAME BRAND ONLY) Prozac [facility] 84760474576 40 MG Orally Active 1 capsu le Once a day Ventolin HFA ND 61344502103 90 MCG/ACT Active 2 pu ffs as Inhalation needed every 6 hrs Prolia [facility] 24651682807 60 MG/ML Active INJECT 1ML (60MG DOSE) SUBCUTANEOUSLY EVERY 6 MONTHS. Ultram [facility] 58460872870 50 MG Orally Active 1 table t as every 6 hrs needed Praluent ND 53714001042 75 MG/ML Active 1 im Subcutaneous every 2 weeks Symbicort ND 26065759689 160-4.5 MCG/ACT Active 2 puffs Inhalation Twice a day Results No Known Results Summary Purpose eClinicalWorks Submission
--- OUTSIDE RECORDS SUMMARY | 2019-10-20 09:37 | XMS REPORT ---
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 Problem Current [...] osteoporosis type, unspecified pathological fracture presence Assessment Osteoporosis, unspecified M81.0 Ac tive osteoporosis type, unspecified pathological fracture presence Problem Endometrial cancer C54.1 Active Problem Chronic obstructive pulmonary J44.9 Active disease, unspecified COPD type Medications Medication Code Code Instructions Start End Status Dosage System Date Date Synthroid [facility] 44109106905 300 MCG Orally Active 1 t ablet in the Once a day morning on an empty stomach (NAME BRAND ONLY) Prozac [facility] 15793128502 40 MG Orally Active 1 capsu le Once a day Symbicort ND 00727658787 160-4.5 MCG/ACT Active 2 puffs Inhalation Twice a day Praluent ND 24872151403 75 MG/ML Active 1 im Subcutaneous every 2 weeks Ultram [facility] 45268871675 50 MG Orally Active 1 table t as every 6 hrs needed Prolia [facility] 31512420796 60 MG/ML Active INJECT 1ML (60MG DOSE) SUBCUTANEOUSLY EVERY 6 MONTHS. Ventolin HFA [facility] 04205459444 90 MCG/ACT Active 2 pu ffs as Inhalation needed every 6 hrs Results No Known Results Summary Purpose [employer]ClinicalWorks Submission
--- OUTSIDE RECORDS SUMMARY | 2019-10-20 09:37 | XMS REPORT | Continuity of Care Document ---
:1950 Author Organization [facility] t Address [address] [place] [id number] Care Team Providers Name Role Phone Cecil Pineda Primary Care Physician Samson WINTERS, K.H. Attending Clinician Doctor Unassigned, Name Attending Clinician Unavailable Israel Mixon Attending Clinician Sherman Gonzalez Attending Clinician Denise Bliss Attending Clinician Problems Condition Condition Condition Status Onset Resolution Last Treating Co mments Source Name Details Category Date Date Treatment Clinician Date DX: Diagnosis Active 2019-05-27 Mem oria J47.1=BRON 2-17 06:25:00 l CHIECTASIS DX: 00:00: Jg bhardwaj WITH J47.1=BRON 00 (ACUTE) EX CHIECTASIS WITH (ACUTE) EX Active 05/22/2019 [facility] PFT --- CT Diagnosis Active 2018-05-31 Memoria CHEST WO 2-18 13:13:00 l CONTRAST PFT --- 00:00: Estrellita giles DX: CT CHEST 00 CHRONIC WO CONTRAST DX: CHRONIC Active 05/23/2018 [facility] E66.9, Diagnosis Active 2017-04-23 Mem oria Z71.3, 1-15 09:47:00 l R11.2 E66.9, 00:00: Neil Herrera.3, 00 R11.2 Active 04/19/2017 [facility] [place] ABD PAIN Diagnosis Active 2012-08-29 M emoria 08-28 04:06:00 l ABD PAIN 23:00: Jg n 00 Active 08/28/2012 [facility] NERUOLOGY, Diagnosis Active 2012-08-30 Memoria DIZZINESS 08-28 09:15:00 l WITH 23:00: Neil ABNORMAL NERUOLOGY, 00 CT DIZZINESS WITH ABNORMAL CT Active 3 [facility] 536.8/787. Diagnosis Active 2010-042011-01-22 Memoria 99/V76.51 0-04 05:59:00 l 00:00: Neil 536.8/787. 00 99/V76.51 Active 01/06/2011 [facility] UNK Diagnosis Active 2010-042011-01-20 Mem oria 0-04 15:47:00 l UNK 00:00: [place] 00 Active 01/06/2011 [facility] Hyperlipid Hyperlipid Diagnosis Active [facility] Pancolitis Pancolitis Problem Active [facility]ics Chronic Chronic Problem Active [facility] lower back lower back Linda kes - pain pain [facility] Osteoporos Osteoporos Problem Active [facility] is, is, [facility] - unspecifie unspecifie Me moria d d l osteoporos osteoporos Ou tpati is type, is type, ent unspecifie unspecifie Cl inics d d pathologic pathologic al al fracture fracture presence presence Myocardial Myocardial Problem Active C [facility] infarction infarction Linda kes - [facility] Kidney Kidney Problem Active [facility] stone stone [facility] Endometria Endometria Problem Active [facility] l cancer l cancer [facility] Fibromyalg Fibromyalg Problem Active [facility] ia ia [facility] Chronic Chronic Problem Active [facility] obstructiv obstructiv Linda kes - e e Memoria pulmonary pulmonary l disease, disease, Outpat i unspecifie unspecifie en t d COPD d COPD Clinics type type Cervical Cervical Problem Active [facility] radiculopa radiculopa [facility] - thy thy [facility] GERD GERD Problem Active [facility] without without [facility] - esophagiti esophagiti [facility] moria s [facility] 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 Linda kes - sterolemia sterolemia Me moria l [facility] Hypothyroi Hypothyroi Problem Active [facility] dism dism [facility] Depression Depression Problem [facility] Hyperlipid Hyperlipid Problem Active [facility] emia emia [facility] H/O: CVA H/O: CVA Problem Active [facility] (cerebrova (cerebrova Linda kes - scular scular Memoria accident) accident) l [facility] Current Current Problem Active [facility] mild mild [facility] - episode of episode of Me moria major major l depressive depressive Ou tpati disorder disorder ent without without Clinics prior prior episode episode Abnormal Abnormal Problem Active [facility] mammogram mammogram Luke s - of left of left [facility]oria breast breast l [facility] Noncomplia Noncomplia Diagnosis Active [facility] nce with nce with [facility] - dietary dietary Memoria restrictio restrictio l n n [facility] Current Current Problem Active [facility] moderate moderate [facility] - episode of episode of Me moria major major l depressive depressive Ou tpati disorder disorder ent without without Clinics prior prior episode episode Coronary Coronary Problem Active [facility] artery artery [facility] - disease of disease of Me moria tribe tribe l artery of artery of Outp ati tribe tribe ent heart with heart with Cl inics stable stable angina angina pectoris pectoris Renal Renal Diagnosis Active [facility] insufficie insufficie Linda kes - ncy ncy [facility]ics Noncomplia Noncomplia Diagnosis Active [facility] nce nce [facility] - w/medicati w/medicati Me moria on on l treatment treatment Outp ati due to due to ent intermit intermit Clinic s use of use of medication medication Dietary Problem 2017-07-30 Arjun radha counseling 15:07:52 l and Dietary Neil surveillan counseling ce and surveillan ce 07/30/2017 JEM Chapin Obesity, Problem 2017-09-07 Mem oria unspecifie 12:50:50 l d Obesity, Jg n unspecifie d 09/07/2017 Deepali Moreno Tyner Other Problem 2017-09-07 Memor ia specified 12:50:50 l diseases Other Neil of liver specified diseases of liver 09/07/2017 TIM Tyner Umbilical Problem 2017-09-07 Me moria hernia 12:50:50 l without Neil obstructio 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 n or gangrene 09/07/2017 [facility] Benign Problem 2017-09-07 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:50:50 l 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 09/07/2017 [facility] Body mass Problem 2017-09-07 Me moria index 12:50:50 l (BMI) Body [place] 32.0-32.9, mass index adult (BMI) 32.0-32.9, adult 09/07/2017 Deepali Chapin Tyner Acquired Problem 2017-09-07 Mem oria absence of 12:50:50 l other Acquired Jg n specified absence of parts of other digestive specified tract parts of digestive tract 09/07/2017 [facility] Spondylosi Problem 2017-08-14 M emoria s without 11:24:09 l myelopathy Jg n or Spondylosi radiculopa s without thy, myelopathy cervical or region radiculopa thy, cervical region 08/14/2017 [facility] Hypothyroi Problem Resolve 2019-05-28 Memoria dism d 23:42:33 l (disorder) Jg n Hypothyroi dism (disorder) Resolved [facility]28[facility]2019 [facility] Lupus Problem Resolve 2019-05-28 Arjun radha erythemato d 23:42:33 l dave Lupus Neil (disorder) erythemato dave (disorder) Resolved Problem 05/28/2019 [facility], [facility] Cerebrovas Problem Resolve 2019-05-28 Memoria cular d 23:42:33 l accident [place] (disorder) Cerebrovas cular accident (disorder) Resolved Problem 05/28/2019 [facility], [facility] Hypothyroi Problem Resolve 2012-08-31 Memoria d d 20:30:55 l Neil Hypothyroi d Resolved Problem 08/31/2012 [facility] Lupus Problem Resolve 2012-08-31 Arjun radha d 20:30:55 l Lupus Neil Resolved Problem 08/31/2012 [facility] Stroke Problem Resolve 2012-08-31 Arjun radha d 20:30:55 l Stroke [place] Resolved Problem 08/31/2012 [facility] DIZZINESS Diagnosis Active 2012-08-30 Memoria AND 09:15:00 l GIDDINESS Neil DIZZINESS AND GIDDINESS Active [facility] OBESITY, Diagnosis Active 2017-04-23 M emoria UNSPECIFIE 09:47:00 l D OBESITY, Jg n UNSPECIFIE D Active [facility] [place] DIETARY Diagnosis Active 2017-04-23 Me moria COUNSELING 09:47:00 l AND DIETARY [place] SURVEILLAN COUNSELING CE AND SURVEILLAN CE [facility] NAUSEA Diagnosis Active 2017-04-23 Mem oria WITH 09:47:00 l VOMITING, NAUSEA Estrellita nn UNSPECIFIE WITH D VOMITING, UNSPECIFIE D Active [facility] SHORTNESS Diagnosis Active 2018-05-31 Memoria OF BREATH 13:13:00 l Neil SHORTNESS OF BREATH Active [facility] CHRONIC Diagnosis Active 2018-05-31 Me moria OBSTRUCTIV 13:13:00 l E CHRONIC [place] PULMONARY OBSTRUCTIV DISEASE W E PULMONARY DISEASE W Active [facility] BRONCHIECT Diagnosis Active 2019-05-27 Memoria ASIS WITH 06:25:00 l (ACUTE) Neil EXACERBATI BRONCHIECT ON ASIS WITH (ACUTE) EXACERBATI ON Active [facility] Generalize Problem 2017-09-07 2017-09-07 Memoria d 3-03 12:50:50 12:50:50 l abdominal 05:29: [place] tenderness Generalize 31 d abdominal tenderness 06/05/2017 09/07/2017 ANNE MARIEJacqueline Chapin Abnormal Problem 2017-08-14 2017-08-14 Memoria reflex 2-08 11:24:09 11:24:09 l Abnormal 05:34: Jg n reflex 46 05/13/2017 08/14/2017 TIM Chapin Allergies, Adverse Reactions, Alerts Allergy Allergy Status Severity Reaction(s) Onset Inactive Treating Comm ents Source Name Type Date Date Clinician Codeine Propensi Active Other (See SEIZURE [place] ty to Comments) 5-12 Methodi adverse 00:00: st reaction 00 s to drug codeine Adverse Active Info Not [facility] Reaction Available [facility] codeine codeine Active Sera Trejo Family History Family Member Diagnosis Comments Start Date Stop Date Source Natural brother No Known Problems [facility] Natural daughter Uterine cancer [place] [facility] Natural father Cancer [facility] Natural mother Cancer [facility] Natural sister Heart failure [facility] Natural sister No Known Problems Memo [facility] Natural son CABG/Stent [facility] Natural son Diabetes [facility] Natural son Heart attack [facility] Social History Social Habit Start Date Stop Date Quantity Comments Source Sex Assigned At [facility] Alcohol intake 2016-09-24 2016-09-24 Current [facility] 00:00:00 00:00:00 non-drinker of alcohol (finding) History of 2016-04-05 [facility]:00 Smoking Status Start Date Stop Date Source Former smoker 2016-09-24 00:00:00 2016-09-24 00:00:00 [facility] Medications Ordered Filled Start Stop Current Ordering Indication Dosage Frequency Signature Comments Components Source Medication Medication Date Date Medication? Clinician (SIG) Name Name Praluent Praluent Yes Biju [address] 6-05 [facility] 00:00: [facility] 00 l [facility] FLUoxetine Yes 40mg QD Take 40 mg [place] (PROzac) 40 6-06 by mouth Meth dixon MG capsule 08:53: daily. st 40 levothyroxi Yes 175ug QD Take 175 [place] ne 6-06 mcg by Methodi (SYNTHROID, 08:53: mouth st LEVOXYL) 40 every 175 mcg morning. tablet ALIROCUMAB Yes Q14D Inject [place] on (PRALUENT 6-06 under the Metho di PEN SUBQ) 08:53: skin every st 40 14 (fourteen) days. aspirin 81 Yes Prabhakar Patricio 81 mg, 1 Memoria mg tablet, 5-27 Vega tab, PO, l enteric 18:53: Daily, Neil coated 55 with food, 14 tab, Substituti on Allowed, ECTABwith food Antivert 25 Yes Prabhakar Patricio 25 mg, 1 Memoria mg oral 5-27 Vega tab, PO, l tablet 18:50: Q6H, 4 [place] 16 tab, Substituti on Allowed aspirin 325 2012- No Prabhakar Patricio 325 mg, 1 Memoria mg tablet, 5-27 Vega tab, l enteric 09:17: Route: PO, Herm nunu coated 00 Drug form: ECTAB, Daily, Dosing Weight 63.636, kg, Start date: 08/29/12 4:17:00, Duration: 30 day, Stop date: 09/27/12 9:00:00 morphine 2012-0 No Prabhakar Patricio 2 mg, 1 Me moria Sulfate 5-27 Vega mL, Route: l 09:07: IVP, Drug Neil 00 form: INJ, ONCE, Dosing Weight 63.636, kg, Priority: STAT, Start date: 08/29/12 4:07:00, Stop date: 08/29/12 4:07:00 meclizine 2012- No Prabhakar Patricio 12.5 mg, 1 Memoria 5-27 Vega tab, l 09:07: Route: PO, Neil 00 Drug form: TAB, Q8H, Dosing Weight 63.636, kg, Priority: STAT, Start date: 08/29/12 4:07:00, Duration: 30 day, Stop date: 09/28/12 0:00:00 Zofran 2012- No Prabhakar Patricio 4 mg, 2 Arjun radha 5-27 Vega mL, Route: l 09:07: IVP, Drug [place] 00 form: INJ, Q4H, Dosing Weight 63.636, kg, PRN Nausea, Priority: STAT, Start date: 08/29/12 4:07:00, Duration: 30 day, Stop date: 09/28/12 4:06:00 labetalol 2012- No Prabhakar Patricio 10 mg, 2 Memoria 5-27 Vega mL, Route: l 09:07: IVP, Drug Neil 00 form: INJ, Q10Min, Dosing Weight 63.636, kg, PRN Hypertensi on, Start date: 08/29/12 4:07:00, Duration: 30 day, Stop date: 09/28/12 4:06:00, For SBP > 180mmHg and/or DBP > 105mmHg enoxaparin 2012- No Thomica 63.636 mg, Memoria 5-27 Preeti Route: l 08:42: Evans-Macario SUB-Q, Estrellita nn 00 s Drug form: INJ, ONCE, Dosing Weight 63.636, kg, Priority: STAT, Start date: 08/29/12 3:42:00, Stop date: 08/29/12 3:42:00 meclizine No Thomica 25 mg, Mem oria 08-29ia Route: PO, l 05:48: Valentino Drug form: [place] 00 s TAB, ONCE, Dosing Weight 63.636, kg, Priority: STAT, Start date: 08/29/12 0:48:00, Stop date: 08/29/12 0:48:00 ondansetron No Thomica 4 mg, Me moria 08-29ia Route: l 05:48: Valentino IVP, ONCE, [place] 00 s Dosing Weight 63.636, kg, Priority: STAT, Start date: 08/29/12 0:48:00, Stop date: 08/29/12 0:48:00 Saline No Thomica 5 ml, Memoria Flush 0.9% 08-29 Route: l 05:48: Valentino IVP, Drug He rmann s Form: INJ, Dosing Weight 63.636, kg, PRN, PRN Line Flush, Start date: 08/29/12 0:48:00, Duration: 30 day, Stop date: 09/28/12 0:47:00 Tylenol 325 2010-04 Yes 1 tab, PO, Memoria mg oral 0-20 Q4H, PRN, l tablet 12:05: 60 tab, Neil 44 Fever, Substituti on Allowed Synthroid 2010-04 Yes 1 tab, PO, Me moria 125 mcg 0-20 Daily, 30 l (0.125 mg) 12:04: tab, Neil oral tablet 56 Substituti on Allowed, TAB Lactated 2010-04 No Jason K 1,000 mL, Memoria Ringers IV 0-20 Carlos Rate: 40 l 1,000 mL 12:01: ml/hr, Neil 1,000 mL 00 Infuse over: 25 hr, Route: IV, Total Volume: 1,000, Start date: 01/22/11 7:01:00, Duration: 30 day, Stop date: 02/21/11 7:00:00 influenza 2006-1 No Prabhakra Patricio 0.5 ml, M emoria virus 2-05 Vega Route: IM, l vaccine, 23:00: Drug form: Her martinez inactivated 00 INJ, Start date: 03/09/06 17:00:00, Stop date: 03/09/06 17:00:00 Ultram Ultram Yes Biju 1 [facility] Ventolin Ventolin Yes Biju [address] HFA HFA [facility]ined[facility] needed [facility] Symbicort Symbicort Yes Biju [address] [facility] Prozac Prozac Yes Biju [address] [facility] Prolia Prolia Yes Biju INJECT 1ML [facility] (60MG [facility] - DOSE) Memoria SUBCUTANEO l USLY EVERY Outpati 6 MONTHS. ent Clinics Synthroid Synthroid Yes Biju [address] [facility] in the [facility] - morning on Memoria an empty l stomach Outpati ent Clinics Synthroid Synthroid Yes Biju [address] [facility] in the [facility] - morning on Memoria an empty l stomach Outpati ent Clinics Celebrex Celebrex Yes Biju [address] [facility] with food [facility] Immunizations Ordered Filled Immunization Date Status Comments [facility] e Immunization Name Name FLUZONE HIGH DOSE FLUZONE HIGH DOSE 2018-12-[address] [facility] - OVER 65 OVER 65 00:00:00 [facility] Vital Signs Vital Name Observation Time Observation Value Comments Source BMI Calculated 2018-05-31 19:30:00 Lynnette Bailon Weight 2018-05-31 19:30:00 [facility] Height 2018-05-31 19:30:00 152.4 cm [facility] Heart Rate 2012-08-29 17:00:00 [facility] Temperature Oral (F) 2012-08-29 17:00:00 98.3 F [facility] Respitory Rate 2012-08-29 17:00:00 Lynnette Bailon Systolic (mm Hg) 2012-08-29 17:00:00 Arjun rial [place] Diastolic (mm Hg) 2012-08-29 17:00:00 Mem orial Neil Weight 2012-08-29 13:00:00 Memorial [place] Height 2012-08-29 13:00:00 162.5 cm Memorial Neil Systolic (mm Hg) 2012-08-29 13:00:00 Arjun rial [place] Respitory Rate 2012-08-29 13:00:00 Memori al Neil Heart Rate 2012-08-29 13:00:00 Memorial [place] Temperature Oral (F) 2012-08-29 13:00:00 98.1 F [facility] Neil Diastolic (mm Hg) 2012-08-29 13:00:00 Mem orial [place] Respitory Rate 2012-08-29 11:00:00 Memori al Neil Temperature Oral (F) 2012-08-29 11:00:00 97.8 F Memorial [place] Heart Rate 2012-08-29 11:00:00 Memorial Neil Diastolic (mm Hg) 2012-08-29 11:00:00 Mem orial [place] Systolic (mm Hg) 2012-08-29 11:00:00 Arjun rial [place] Height 2012-08-29 09:20:00 152.4 cm Memorial [place] Weight 2012-08-29 09:20:00 Memorial Neil Weight 2012-08-29 05:10:00 Memorial [place] Height 2012-08-29 05:10:00 162.56 cm [facility] Neil Diastolic (mm Hg) 2011-01-22 14:15:00 Mem orial Neil Systolic (mm Hg) 2011-01-22 14:15:00 Arjun rial [place] Respitory Rate 2011-01-22 14:15:00 Memori al [place] Heart Rate 2011-01-22 14:15:00 Memorial Neil Diastolic (mm Hg) 2011-01-22 14:00:00 Mem orial [place] Systolic (mm Hg) 2011-01-22 14:00:00 Arjun rial Neil Respitory Rate 2011-01-22 14:00:00 Memori al Neil Heart Rate 2011-01-22 14:00:00 Memorial Neil Diastolic (mm Hg) 2011-01-22 13:42:00 Mem orial [place] Respitory Rate 2011-01-22 13:42:00 Memori al [place] Systolic (mm Hg) 2011-01-22 13:42:00 Arjun Trejo Heart Rate 2011-01-22 13:42:00 [facility] Neil Temperature Oral (F) 2011-01-20 21:41:00 98.8 F Wilber Trejo Weight 2011-01-20 21:00:00 [facility] Neil Height 2011-01-20 21:00:00 152.4 cm [facility] Procedures Procedure Date / Time Performed Performing Clinician Neli richardson Arthroscopy of knee [facility] Her martinez Arthroscopy of knee [facility] Plan of Care Planned Activity Planned Date Details Comments Source Future Scheduled 2019-11-04 INFLUENZA VACCINE [place] [facility] Test 00:00:00 [code = INFLUENZA VACCINE] Future Scheduled 2016-02-20 65+ PNEUMOCOCCAL [place] [facility] Test 00:00:00 VACCINE (1 of 2 - PCV13) [code = 65+ PNEUMOCOCCAL VACCINE (1 of 2 - PCV13)] Future Scheduled 2001 BREAST CANCER [facility] thodist Test 00:00:00 SCREENING [code = BREAST CANCER SCREENING] Future Scheduled 2001 COLONOSCOPY SCREENING [place] [facility] Test 00:00:00 [code = COLONOSCOPY SCREENING] Future Scheduled 2001 SHINGLES VACCINES (#1) [place] [facility] Test 00:00:00 [code = SHINGLES VACCINES (#1)] Encounters Start End Encounter Admission Attending Care Care Encounter Source Date/Time Date/Time Type Type Clinicians Facility Department ID 2019-09-12 2019-09-12 [facility] [id number] 09:30:00 09:30:00 [facility] Out[facility] ent Clin[facility] 2019-08-29 2019-08-29 [facility] [id number] 10:16:00 10:16:00 [facility] Medicine Medicine Outpati ent Clinics 2019-08-25 2019-08-25 Telephone DEMIAN Davies [id number] 00:00:00 00:00:00 Zach Agudelo [id number] Josiane [id number] Silas [id number] [address] 2019-08-25 2019-08-25 Orders Doctor COLUNGA [id number] 00:00:00 00:00:00 Only Unassigned, FINN [id number] [place] [id number] 2019-08-09 2019-08-09 [facility] [id number] 08:00:00 08:00:00 t [facility] Clin[facility] 2019-08-03 2019-08-03 [facility] [id number] 11:30:00 11:30:00 t [facility] 2019-07-01 2019-07-01 [facility] [id number] 10:37:00 10:37:00 t [facility] 2019-06-30 2019-06-30 [facility] [id number] 14:23:00 14:23:00 t [facility] 2019-06-12 2019-06-12 [facility] [id number] 10:45:00 10:45:00 t [facility] 2019-05-26 2019-05-26 Outpatient Lechin, MHSE MHSE [id number] 09:52:00 23:59:00 Rajesh E 07 2019-05-26 2019-05-26 Outpatient MHSE PUL [id number] [facility] 09:52:[facility]:52[facility] [facility] 2019-05-02 2019-05-02 [facility] [id number] 14:45:00 14:45:00 t [facility] 2019-04-25 2019-04-25 Office Samson [facility] [id number] 13:50:59 14:42:51 Visit Zach Agudelo [id number] [place] [id number] [facility] [id number] [facility] 059 [facility] 2019-03-13 2019-03-13 [facility] [id number] 10:30:00 10:30:00 [place] [address] Luke s - Drive [facility] 2019-03-08 2019-03-08 [facility] [id number] 08:51:00 08:51:00 [place] [address] Luke s - Drive [facility] 2019-02-14 2019-02-14 [facility] [id number] 10:09:00 10:09:00 [place] [address] Luke s - Drive [facility] 2019-01-12 2019-01-12 [facility] [id number] 11:15:00 11:15:00 [place] [employer] Luke s - Drive [facility] 2019-01-10 2019-01-10 [facility] [id number] 13:28:00 13:28:00 [place] [employer] Luke s - Drive [facility] 2018-12-27 2018-12-27 [facility] [id number] 15:00:00 15:00:00 [place] [employer] Luke s - Drive [facility] 2018-12-08 2018-12-08 [facility] [id number] 10:15:00 10:15:00 [place] [employer] Luke s - Drive [facility] 2018-10-31 2018-10-31 Outpatient Carlos, MHOIP MHOIP [id number] 13:05:00 23:59:00 Jason Whitaker 2018-10-20 2018-10-20 [facility] [id number] 11:00:00 11:00:00 [place] [address] Luke s - Drive [facility] 2018-09-21 2018-09-21 [facility] [id number] 14:11:00 14:11:00 [place] [employer] Luke s - Drive [facility] 2018-07-13 2018-07-13 [facility] [id number] 14:15:00 14:15:00 [place] [employer] [facility] 2018-06-14 2018-06-14 [facility] [id number] 09:00:00 09:00:00 t [facility] 2018-05-31 2018-05-31 Outpatient JEM MixonSE MHSE [id number] 13:03:00 23:59:00 Rajesh E 2018-04-11 2018-04-11 [facility] [id number] 13:45:00 13:45:00 t [facility] 2018-03-15 2018-03-15 [facility] [id number] 09:30:00 09:30:00 t [employer] [facility] 2017-12-03 2017-12-03 [facility] [id number] 09:15:00 09:15:00 t [facility] 2017-09-09 2017-09-09 Outpatient JEM MixonOIP MHOIP [id number] 13:49:00 23:59:00 Rajesh Richardson 02 2017-09-03 2017-09-03 [facility] [id number] 10:00:00 10:00:00 t [facility] 2017-08-02 2017-08-02 [facility] [id number] 15:45:00 15:45:00 [place] [facility] 2017-07-20 2017-07-20 [facility] [id number] 13:45:00 13:45:00 t [facility] 2017-07-05 2017-07-05 [facility] [id number] 15:00:00 15:00:[address] [place] [address] [place] - Drive [facility] 2017-06-29 2017-06-29 [facility] [id number] 09:15:00 09:15:00 [address] [place] [address] [place] - Drive [facility] 2017-06-01 2017-06-01 Outpatient Carlos, MHOIP MHOIP [id number] 10:00:00 23:59:00 Jason Sherman 2017-05-08 2017-05-08 Outpatient Ruthy, MHOIP MHOIP [id number] 08:46:00 23:59:00 Aide Denise 00 2017-04-23 2017-04-23 Outpatient Carlos, MHPL MHPL [id number] 09:34:00 23:59:00 Jason Whitaker Results Test Description Test Time Test Comments Results Result Sourc e Comments CHEMISTRY 2012-08-29 113 [facility] 12:39:00 [place] CHEMISTRY 2012-08-29 <0.02 [facility] 12:39:00 [place] CHEMISTRY 2012-08-29 1.0 [facility] 12:39:00 [place] CHEMISTRY 2012-08-29 1.1 [facility] 12:39:00 [place] URINALYSIS 2012-08-29 Negative mg/dL [facility] 07:53:00 (08/29/2012 [place] 02:53:00) URINALYSIS 2012-08-29 Negative mg/dL [facility] 07:53:00 *NA*(08/29/2012 [facility] 02:53:00) URINALYSIS 2012-08-29 Trace mg/dL [facility] 07:53:00 *ABN*(08/29/2012 [place] 02:53:00) URINALYSIS 2012-08-29 Negative [facility] 07:53:00 *NA*(08/29/2012 [facility] 02:53:00) URINALYSIS 2012-08-29 5.0 [facility] 07:53:00 [place] URINALYSIS 2012-08-29 Few /LPF [facility] 07:53:00 *NA*(08/29/2012 [facility] 02:53:00) URINALYSIS 2012-08-29 Small [facility] 07:53:00 *ABN*(08/29/2012 [facility] 02:53:00) URINALYSIS 2012-08-29 Trace [facility] 07:53:00 *ABN*(08/29/2012 [place] 02:53:00) URINALYSIS 2012-08-29 Negative [facility] 07:53:00 (08/29/2012 [place] 02:53:00) URINALYSIS 2012-08-29 1 [facility] 07:53:00 [place] URINALYSIS 2012-08-29 Occasional /LPF [facility] 07:53:00 *NA*(08/29/2012 [place] 02:53:00) URINALYSIS 2012-08-29 4 [facility] 07:53:00 [place] URINALYSIS 2012-08-29 1.018 [facility] 07:53:00 [place] URINALYSIS 2012-08-29 Yellow [facility] 07:53:00 *NA*(08/29/2012 [facility] 02:53:00) URINALYSIS 2012-08-29 Clear [facility] 07:53:00 (08/29/2012 [facility] 02:53:00) CHEMISTRY 2012-08-29 118 [facility] 05:57:00 [place] CHEMISTRY 2012-08-29 0.6 [facility] 05:57:00 [place] CHEMISTRY 2012-08-29 <0.02 [facility] 05:57:00 [place] CHEMISTRY 2012-08-29 61 [facility] 05:57:00 [place] CHEMISTRY 2012-08-29 28 [facility] 05:57:00 [place] CHEMISTRY 2012-08-29 3.8 [facility] 05:57:00 [place] CHEMISTRY 2012-08-29 11.5 [facility] 05:57:00 [place] CHEMISTRY 2012-08-29 22 [facility] 05:57:00 [place] CHEMISTRY 2012-08-29 0.3 [facility] 05:57:00 [place] CHEMISTRY 2012-08-29 79 [facility] 05:57:00 [place] CHEMISTRY 2012-08-29 19 [facility] 05:57:00 [place] CHEMISTRY 2012-08-29 1.0 [facility] 05:57:00 [place] CHEMISTRY 2012-08-29 3.9 [facility] 05:57:00 [place] CHEMISTRY 2012-08-29 7.7 [facility] 05:57:00 [place] CHEMISTRY 2012-08-29 8.9 [facility] 05:57:00 [place] CHEMISTRY 2012-08-29 26 [facility] 05:57:00 [place] CHEMISTRY 2012-08-29 1.0 [facility] 05:57:00 [place] CHEMISTRY 2012-08-29 19 [facility] 05:57:00 [place] CHEMISTRY 2012-08-29 105 [facility] 05:57:00 [place] CHEMISTRY 2012-08-29 3.5 [facility] 05:57:00 [place] CHEMISTRY 2012-08-29 140 [facility] 05:57:00 [place] CHEMISTRY 2012-08-29 106 [facility] 05:57:00 [place] CHEMISTRY 2012-08-29 0.5 [facility] 05:57:00 [place] HEMATOLOGY 2012-08-29 33.2 [facility] 05:57:00 [place] HEMATOLOGY 2012-08-29 14.7 [facility] 05:57:00 [place] HEMATOLOGY 2012-08-29 301 [facility] 05:57:00 [place] HEMATOLOGY 2012-08-29 6.9 [facility] 05:57:00 [place] HEMATOLOGY 2012-08-29 13.9 [facility] 05:57:00 [place] HEMATOLOGY 2012-08-29 12.2 [facility] 05:57:00 [place] HEMATOLOGY 2012-08-29 4.73 [facility] 05:57:00 [place] HEMATOLOGY 2012-08-29 05:57:00 Test Item Value Reference Range Interpretation Comme nts MCH (test code = MCH) 29.3 pg 27.0-31.0 N [facility] [id number] 05:57:0088.3[facility]OLOGY 2012-08-29 05:57:0041.8[facility] YuzkanqEUYCVMTWBQ1020-28-63 05:57:0021.0[facility] IwdjqpvXMZTOAEDBT0452-14-42 05:57:0072.5[facility] OnrrrvoNWPXTCQEKB2012-76-07 05:57:004.2[facility] JpivptpASMAMNZKPL8166-63-77 05:57:000.5[facility] Neil ZYFRXNRRZJ9597-57-83 05:57:002.6[facility] DijbzwiMNYCUISRIJ9282-45-39 05:57:001.8 [facility] GvhtaahMPBJYJOREJ4535-37-67 05:57:008.8[facility]annHEMATOLOGY 2012-08-29 05:57:000.1[facility] XtgooitHDZPZLFOBE4015-79-28 05:57:000.5[facility] UjxbxjcFHJFJJJMPD0265-54-49 05:57:000.2[facility] Neil
--- OUTSIDE RECORDS SUMMARY | 2019-10-20 09:38 | XMS REPORT ---
:1950 Author Organization eClinicalWorks Care Team Providers Name Role Phone Biju Pineda Provider Role Unavailable Allergies, Adverse Reactions, Alerts Substance Reaction Event Type codeine Info Not Available Drug Allergy Problems Problem Type Condition Code Onset Dates Condition Statu s Assessment Pancolitis K51.00 Active Assessment Chronic lower back pain M54.5 Acti ve Assessment Cervical radiculopathy M54.12 Activ e Assessment GERD without esophagitis K21.9 Act tono Assessment Fibromyalgia M79.7 Active Assessment Osteoporosis, unspecified M81.0 Ac tive osteoporosis type, unspecified pathological fracture presence Assessment Chronic obstructive pulmonary J44.9 Active disease, unspecified COPD type Assessment Hypothyroidism E03.9 Active Assessment Current moderate episode of major F32.1 Active depressive disorder without prior episode Problem Osteoporosis, unspecified M81.0 Ac tive osteoporosis type, unspecified pathological fracture presence Assessment 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 Problem Chronic obstructive pulmonary J44.9 Active disease, unspecified COPD type Assessment Familial hypercholesterolemia E78.01 Active Problem Fibromyalgia M79.7 Active Problem Cervical radiculopathy M54.12 Activ e Problem GERD without esophagitis K21.9 Act tono Problem Current moderate episode of major F32.1 Active depressive disorder without prior episode Problem Noncompliance with dietary Z91.11 A ctive restriction Problem Hypothyroidism E03.9 Active Problem Depression F32.9 Active Problem 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 Problem Current mild episode of major F32.0 Active depressive disorder without prior episode Problem Pancolitis K51.00 Active Problem Abnormal mammogram R92.8 Active Problem Abnormal mammogram of left breast R92.8 Active Assessment Renal insufficiency N28.9 Active Problem Hyperlipidemia, mixed E78.2 Active Assessment Hyperlipidemia, mixed E78.2 Active Problem Chronic lower back pain M54.5 Acti ve Assessment Noncompliance w/medication Z91.14 A ctive treatment due to intermit use of medication Problem Hyperlipidemia E78.5 Active Assessment H/O: CVA (cerebrovascular accident) Z86.73 Active Problem H/O: CVA (cerebrovascular accident) Z86.73 Active Problem Kidney stone N20.0 Active Assessment Noncompliance with dietary Z91.11 A ctive restriction Problem Familial hypercholesterolemia E78.01 Active Problem Myocardial infarction I21.3 Active Problem Endometrial cancer C54.1 Active Medications Medication Code Code Instructions Start End Status Dosage System Date Date Synthroid [facility] 78608474313 150 MCG Orally Active 1 t ablet on an Once a day empty stomach in the morning ( 200 + 50 mcg) Synthroid [facility] 99019618739 300 MCG Orally Active 1 t ablet in the Once a day morning on an empty stomach (NAME BRAND ONLY) Ultram [facility] 27767058889 50 MG Orally Active 1 table t as every 6 hrs needed Ventolin HFA [facility] 19780336541 90 MCG/ACT Active 2 pu ffs as Inhalation needed every 6 hrs Celebrex [facility] 83703845943 200 MG Orally Active 1 cap jo with Once a day food Prolia [facility] 13505735659 60 MG/ML Active INJECT 1ML (60MG DOSE) SUBCUTANEOUSLY EVERY 6 MONTHS. Symbicort [facility] 61301081713 160-4.5 MCG/ACT Active 2 puffs Inhalation Twice a day Synthroid [facility] 11061068632 300 MCG Orally Active 1 t ablet in the Once a day morning on an empty stomach Praluent [facility] 14955914864 75 MG/ML Active 1 im Subcutaneous every 2 weeks Prozac [facility] 03365892205 40 MG Orally Active 1 capsu le Once a day Synthroid [facility] 09843589502 150 MCG Orally Active 1 t ablet in the Once a day morning on an empty stomach Results No Known Results Summary Purpose eClinicalWorks Submission
[2019-10-20] MEDS ORDERED: Ringers Lactate 1,000 ML IV ONE ×2 (09:46→12:37)
[2019-10-20] MEDS ORDERED: CEFAZOLIN/SWI 1gm 1 GM/10 ML SYR ONE (09:46)
[2019-10-20] MEDS ORDERED: MIDAZOLAM HCL 2 MG/2 ML INJ ONE (10:49)
[2019-10-20] MEDS ORDERED: FENTANYL CITR 100 MCG/2 ML ONE (10:50)
[2019-10-20] MEDS ORDERED: propofoL 200 MG/20 ML VIAL IV ONE (11:20)
[2019-10-20] MEDS ORDERED: ONDANSETRON 4 MG/2 ML VIAL ONE (11:52)
[2019-10-20] MEDS ORDERED: KETOROLAC 30 MG/ML INJ ONE (12:18)
[2019-10-20] MEDS ORDERED: CODEINE 30MG/APAP 300MG TAB ONE (13:25)
[2019-10-20 14:16] VITALS: BP 137/74; TEMP 97; O2SAT 97
--- NOTE | 2019-10-20 15:04 | EKG ---
Test Date: 2019-10-19 Test Time: 14:28:19 [employer]: CODY MEASUREMENT RESULTS: Intervals: Rate: 90 RI: 180 QRSD: 86 QT: 382 QTc: 467 [place]: P: -14 RI: 180 QRS: 55 T: -14 INTERPRETIVE STATEMENTS: Normal sinus rhythm Abnormal QRS-T angle, consider primary T wave abnormality Abnormal ECG Compared to ECG 02/09/2019 07:54:10 T-wave abnormality now present Electronically Signed On 10-20-19 15:03:27 CDT by Ruben Chamorro
--- NOTE | 2019-10-24 09:18 | OP ---
Surgeon: Emiliano Marie MD Preoperative Diagnosis: Degenerative left trapezium. Postoperative Diagnosis: Degenerative left trapezium. Procedure Performed: Trapezium resection, replacement with ligament reconstruction, splint. Anesthesia: General. Description Of Procedure: After satisfactory block, the left arm was prepped with Betadine scrub, Be tadine paint, dry sterile drapes placed. The arm was elevated, exsanguinated with an Esmarch, tourni quet inflated to 250 mmHg. Hand placed on a roll lock table. Forrest shaped incision was placed ove r the 1st metacarpal, extended parallel to the flexor carpi ulnaris. Dissection proceeded down to sk in and subcutaneous tissue. Branches of radial nerve were identified and retracted dorsally and ulna rly. Dissection proceeded down to the metacarpal and then across the trapezium with a scalpel. Flap s were elevated over the periosteum of the metacarpal and the capsule of the trapezial joint. The arnaud ne was squared up with a saw, then filed, and bur was then used to cut a hole to reconstru ct the ligament. The trapezium was then divided with a saw and removed piecemeal and the partial ___ was rounded out to allow sitting of the implant. The right side #1. At this poin t, the flexor carpi radialis was harvested partially junction of the forearm. The tendon was split with a 20-gauge wire, cut proximally, and advanced distally to the canal and then through t he site of previous trapezial . It was then passed through the hole, then looped _ sewn with 3-0 Mersilene. The implant was placed the implant placed and then capsule nallely sed. The end of the ligament was then brought out in the capsule and reinforced external to the caps ule with Mersilene sutures of 3-0. Tourniquet released. Electrocautery used for hemostasis. The wo und was then closed with upside down 4-0 PDS suture. Dressed with tincture of benzoin, St rocco-Strips, and Kerlix. Thumb spica splint was used. The patient tolerated procedure well and returned to recovery. TUTU/JASWANT Voice ID: [id number] Report ID: [id number]
== END 2019-10-20 13:50 | disposition home or self-care (01) ==
LOC: OR 09:23
PROVIDERS: ATTEND Specialist
PROC: 0RQR0ZZ Repair Left Carpal Joint, Open Approach (ICD-10-PCS; 2019-10-20)
PROC: 0RRR0JZ Replacement of Left Carpal Joint with Synthetic Substitute, Open Approach (ICD-10-PCS; principal; 2019-10-20 12:00)
DX: M89.8X4 Other specified disorders of bone, hand (principal); K21.9 Gastro-esophageal reflux disease without esophagitis; M32.9 Systemic lupus erythematosus, unspecified; J44.9 Chronic obstructive pulmonary disease, unspecified; Z11.59 Encounter for screening for other viral diseases; Z88.6 Allergy status to analgesic agent; Z86.73 Personal history of transient ischemic attack (TIA), and cerebral infarction without residual deficits
CPT/HCPCS: 93005; 85025; 36415; 88304; 88311; 81003; 71046; 25445; 25320; J2704; J2250; J3010; J0690; J7120 ×2; J2405; 88305

== ENCOUNTER 2020-03-13 09:54 | Emergency (ER) | payer OTHER ==
--- NOTE | 2020-03-13 10:29 | RAD REPORT ---
EXAM DESCRIPTION: CT - Head Brain Wo Cont - 03/13/2020 10:23 am CLINICAL HISTORY: Dizziness;Headache COMPARISON: No comparisonsNo comparisons TECHNIQUE: Axial 5 mm thick images of the head were obtained without IV contrast. All CT scans are performed using dose optimization technique as appropriate and may include automated exposure control or mA/KV adjustment according to patient size. FINDINGS: No intracranial hemorrhage, mass, edema or shift of mid-line structures. No acute infarcti on changes seen. No abnormal extra-axial fluid collections. Ventricles are normal. Mastoid air cells and visualized portions of the paranasal sinuses are clear. No acute bony findings. IMPRESSION: Negative non-contrast CT head examination.
--- NOTE | 2020-03-13 12:07 | ER ---
Nurse's Notes [facility] Name: Victoria Newman Age: 70 yrs Sex: Female : 1950 Arrival Date: 03/13/2020 Time: 09:56 Bed 17 Private MD: Biju Pineda Diagnosis: Headache;Unspecified injury of head Presentation: 03/13 10:07 Chief complaint: Persistent headache and dizziness after syncopal episode/fall 1 month hb ago. Coronavirus screen: At this time, the client does not indicate any symptoms associated with coronavirus-19. Ebola Screen: No symptoms or risks identified at this time. Initial Sepsis Screen: Does the patient meet any 2 criteria? No. Patient's initial sepsis screen is negative. Does the patient have a suspected source of infection? No. Patient's initial sepsis screen is negative. Risk Assessment: Do you want to hurt yourself or someone else? Patient reports no desire to harm self or others. Onset of symptoms was February 2020. 10:07 Method Of Arrival: Ambulatory hb 10:07 Acuity: MARICHUY 3 hb Historical: - Allergies: 10:09 Codeine; hb - PMHx: 10:09 High Cholesterol; Hypothyroidism; Lupus; hb - PSHx: 10:09 Cholecystectomy; hb - Immunization history:: Adult Immunizations up to date. - Social history:: Smoking status: Patient denies any tobacco usage or history of. Patient/guardian denies using alcohol, street drugs, The patient lives with family. - Family history:: not pertinent. Screenin:55 Abuse screen: Denies threats or abuse. Denies injuries from another. Nutritional ph screening: No deficits noted. Tuberculosis screening: No symptoms or risk factors identified. Fall Risk None identified. Assessment: 11:55 Reassessment: Dr Morales at bedside. ph 12:00 Reassessment: Pt ambulating in hallway per request of Dr Morales, steady gait noted. ph 12:05 General: Appears in no apparent distress. comfortable, Behavior is calm, cooperative, ph appropriate for age, Denies fever, feeling ill. Pain: Complains of pain in right zoroastrianism. Neuro: Level of Consciousness is awake, alert, obeys commands, Oriented to person, place, time, situation, Reports dizziness, x 1month headache in right frontal area. Cardiovascular: Reports lightheadedness, Denies chest pain, nausea, palpitations, shortness of breath, Capillary refill < 3 seconds in bilateral fingers Patient's skin is warm and dry. Respiratory: Airway is patent Respiratory effort is even, unlabored, Respiratory pattern is regular, symmetrical. GI: No signs and/or symptoms were reported involving the gastrointestinal system. Derm: Skin is intact, Skin is pink, warm \T\ dry. Musculoskeletal: Circulation, motion, and sensation intact. Range of motion: intact in all extremities. Vital Signs: 10:07 BP 155 / 76; Pulse 89; Resp 16; Temp 98.2; Pulse Ox 100% on R/A; Weight 69.4 kg; Height hb 5 ft. (152.40 cm); Pain 4/10; 12:19 BP 142 / 70; Pulse 78; Resp 18; Temp 97.8; Pulse Ox 99% on R/A; ph 10:07 Body Mass Index 29.88 (69.40 kg, 152.40 cm) hb Colome Coma Score: 12:03 Eye Response: spontaneous(4). Verbal Response: oriented(5). Motor Response: obeys ma2 commands(6). Total: 15. ED Course: 09:56 Patient arrived in ED. rg4 09:57 Biju Pineda DO is Private Physician. rg4 10:09 Triage completed. hb 10:09 Arm band placed on. hb 10:23 CT Head Brain wo Cont In Process Unspecified. EDMS 11:36 XRAY C Spine Ap/lat In Process Unspecified. EDMS 11:50 Izzy Morales MD is Attending Physician. ma2 11:55 Pao Judge, RN is Primary Nurse. ph 11:56 Patient has correct armband on for positive identification. Bed in low position. Call ph light in reach. Side rails up X 1. Pulse ox on. NIBP on. Door closed. Noise minimized. Warm blanket given. 12:00 Chest Single View XRAY In Process Unspecified. EDMS 12:07 No provider procedures requiring assistance completed. Patient did not have IV access ph during this emergency room visit. Administered Medications: No medications were administered Outcome: 12:06 Discharge ordered by . ma2 12:19 Discharged to home ambulatory, with family. ph 12:19 Condition: good 12:19 Discharge instructions given to patient, Instructed on discharge instructions, follow up and referral plans. Demonstrated understanding of instructions, follow-up care. 12:19 Patient left the ED. ph Signatures: Dispatcher [employer] Pao Matute RN RN ph Baxter, Heather, RN RN hb Garcia, Rubi rg4 Izzy Morales MD MD ma2
--- NOTE | 2020-03-13 12:07 | EDPHYS ---
Physician Documentation [facility] Name: Victoria Newman Age: 70 yrs Sex: Female : 1950 Arrival Date: 03/13/2020 Time: 09:56 Bed 17 Private MD: Edwin [facility] ED Physician Izzy Morales HPI: 03/13 12:03 This 70 yrs old Female presents to ER via Ambulatory with complaints of ma2 Headache, Dizziness. 12:03 The patient complains of pain to the right tenriism. Onset: The symptoms/episode ma2 began/occurred suddenly, 11 day(s) ago. Associated signs and symptoms: Pertinent negatives: fever, nausea, paresthesias, Photophobia rash. Severity of symptoms: At its worst the pain was very mild, in the emergency department the pain has resolved. The patient has not experienced similar symptoms in the past. sent by dr. rothman for [facility] s/p fall, patient has intermittent headache since the fall, she states she tripped and fell, she has no symptoms at this time. i offered blood work, she want to do that at dr. rothman office today.. Historical: - Allergies: 10:09 Codeine; hb - PMHx: 10:09 High Cholesterol; Hypothyroidism; Lupus; hb - PSHx: 10:09 Cholecystectomy; hb - Immunization history:: Adult Immunizations up to date. - Social history:: Smoking status: Patient denies any tobacco usage or history of. Patient/guardian denies using alcohol, street drugs, The patient lives with family. - Family history:: not pertinent. ROS: 12:03 Constitutional: Negative for fever, chills, and weight loss. ma2 12:03 All other systems are negative. Exam: 12:03 Constitutional: This is a well developed, well nourished patient who is awake, alert, ma2 and in no acute distress. Head/Face: Normocephalic, atraumatic. ENT: Nares patent. No nasal discharge, no septal abnormalities noted. Tympanic membranes are normal and external auditory canals are clear. Oropharynx with no redness, swelling, or masses, exudates, or evidence of obstruction, uvula midline. Mucous membranes moist. Neck: Trachea midline, no thyromegaly or masses palpated, and no cervical lymphadenopathy. Supple, full range of motion without nuchal rigidity, or vertebral point tenderness. No Meningismus. Chest/axilla: Normal chest wall appearance and motion. Nontender with no deformity. No lesions are appreciated. Cardiovascular: Regular rate and rhythm with a normal S1 and S2. No gallops, murmurs, or rubs. Normal PMI, no JVD. No pulse deficits. Respiratory: Lungs have equal breath sounds bilaterally, clear to auscultation and percussion. No rales, rhonchi or wheezes noted. No increased work of breathing, no retractions or nasal flaring. Abdomen/GI: Soft, non-tender, with normal bowel sounds. No distension or tympany. No guarding or rebound. No evidence of tenderness throughout. Skin: Warm, dry with normal turgor. Normal color with no rashes, no lesions, and no evidence of cellulitis. MS/ Extremity: Pulses equal, no cyanosis. Neurovascular intact. Full, normal range of motion. Neuro: Awake and alert, GCS 15, oriented to person, place, time, and situation. Cranial nerves II-XII grossly intact. Motor strength 5/5 in all extremities. Sensory grossly intact. Cerebellar exam normal. Normal gait. Vital Signs: 10:07 BP 155 / 76; Pulse 89; Resp 16; Temp 98.2; Pulse Ox 100% on R/A; Weight 69.4 kg; Height hb 5 ft. (152.40 cm); Pain 4/10; 12:19 BP 142 / 70; Pulse 78; Resp 18; Temp 97.8; Pulse Ox 99% on R/A; ph 10:07 Body Mass Index 29.88 (69.40 kg, 152.40 cm) hb Edward Coma Score: 12:03 Eye Response: spontaneous(4). Verbal Response: oriented(5). Motor Response: obeys ma2 commands(6). Total: 15. MDM: 11:50 Patient medically screened. ma2 12:03 Differential diagnosis: migraine, subdural hematoma, traumatic injuries, vasomotor ma2 headache. Data reviewed: vital signs, nurses notes. Counseling: I had a detailed discussion with the patient and/or guardian regarding: the historical points, exam findings, and any diagnostic results supporting the discharge/admit diagnosis, the presence of at least one elevated blood pressure reading (>120/80) during this emergency department visit, the need for outpatient follow up. Response to treatment: the patient's symptoms have resolved after treatment. 03/13 11:03 Order name: Basic Metabolic Panel ma2 03/13 11:03 Order name: CBC with Diff ma2 03/13 10:10 Order name: CT Head Brain wo Cont; Complete Time: 11:02 kb 03/13 11:03 Order name: XRAY C Spine Ap/lat ma2 03/13 11:03 Order name: Chest Single View XRAY ma2 Administered Medications: No medications were administered Disposition: 03/13/20 12:06 Discharged to Home. Impression: Headache, Unspecified injury of head. - Condition is Stable. - Discharge Instructions: Head Injury, Adult. - Medication Reconciliation Form, Thank You Letter, Antibiotic Education, Prescription Opioid Use form. - Follow up: Private Physician; When: Tomorrow; Reason: Continuance of care. Signatures: Dispatcher [employer] EDPao Hale RN RN Sarah Becerra RN RN Izzy Morales MD MD ma2 Corrections: (The following items were deleted from the chart) 12:11 11:03 Cardiac monitoring ordered. ma2 ph 12:11 11:03 EKG - Nurse/Tech ordered. ma2 ph 12:12 11:03 IV Saline Lock ordered. ma2 ph 12:12 11:03 Labs collected and sent ordered. ma2 ph 12:13 11:03 NPO ordered. ma2 ph 12:13 11:03 Oxygen Per Protocol ordered. ma2 ph 12:13 11:03 O2 Sat Monitoring ordered. ma2 ph 12:13 11:03 Urine Dipstick-Ancillary ordered. ma2 ph 12:19 12:06 03/13/2020 12:06 Discharged to Home. Impression: Headache; Unspecified injury of ph head. Condition is Stable. Forms are Medication Reconciliation Form, Thank You Letter, Antibiotic Education, Prescription Opioid Use. Follow up: Private Physician; When: Tomorrow; Reason: Continuance of care. ma2
--- NOTE | 2020-03-13 13:28 | RAD REPORT ---
EXAM DESCRIPTION: RAD - Chest Single View - 03/13/2020 12:01 pm CLINICAL HISTORY: CONGESTION COMPARISON: October 18 TECHNIQUE: AP portable chest image was obtained 03/13/2020 12:01 pm . FINDINGS: Lungs are fibrotic with the interstitial pattern similar to the comparison. No superimpose d failure, infiltrate or mass identified. No hilar mass or lymphadenopathy. Heart and vasculature are normal. No measurable pleural effusion and no pneumothorax. No acute bony abnormality seen. No acute aortic findings suspected. IMPRESSION: Chronic interstitial fibrotic pattern similar to comparison. No acute findings seen.
--- NOTE | 2020-03-13 13:29 | RAD REPORT ---
EXAM DESCRIPTION: RAD - C Spine Ap/Lat - 03/13/2020 11:44 am CLINICAL HISTORY: fall COMPARISON: No comparisons FINDINGS: Cervical bodies are normal in height. No fracture or acute vertebral body finding seen. Th ere is very slight anterior subluxation of C4 on C5 and C5 on C6. Both levels show moderate facet hardy nt degenerative change which would account for the slight subluxation. No pathologic bone process. No significant disc space narrowing identified. There is no prevertebral soft tissue thickening or other suspicious soft tissue finding. IMPRESSION: Cervical spine degenerative changes are present primarily in the facet joints. No compression fracture or acute cervical finding seen.
--- OUTSIDE RECORDS SUMMARY | 2020-03-13 15:46 | XMS REPORT | Clinical Summary ---
:1950 Author Organization [facility] Address [address] [place] [address] Care Team Providers Name Role Phone Biju Pineda DO Primary Care Provider [phone] Allergies Active Allergy Reactions Severity Noted Date Comments Codeine Other (See Comments) 08/14/2016 SEIZURE Medications Medication Sig Dispensed Refills Start Date End Date Status FLUoxetine (PROzac) 40 Take 40 mg by 0 Active MG capsule mouth daily. levothyroxine Take 175 mcg by 0 Active (SYNTHROID, LEVOXYL) 175 mouth every mcg tablet morning. ALIROCUMAB (PRALUENT PEN Inject under the 0 Active SUBQ) skin every 14 (fourteen) days. Active Problems Not on file Encounters Date Type Specialty Care Team Description 01/16/2020 Lab Lab Derrick Malhotra MD 01/16/2020 Travel after 03/13/2019 Surgical History Surgery Date Site/Laterality Comments LAPAROSCOPIC CHOLECYSTECTOMY 06/30/2016 SECTION X 3 HYSTERECTOMY APPENDECTOMY EGD AND COLONOSCOPY CARDIAC CATHETERIZATION LASIK KNEE ARTHROSCOPY Right PHACOEMULSIFICATION, CATARACT, 09/01/2016 Eye/Right P rocedure: WITH IOL IMPLANTATION PHACOEMULS IFICATION, CATARACT, WITH I OL IMPLANTATION; S urgeon: Mark Ha MD; Location: [facility] OR; Service: Ophthal mology; Laterality: Righ t; Medical devices from this surgery are in t he Implants section. PHACOEMULSIFICATION, CATARACT, 09/08/2016 Eye/Left P rocedure: WITH IOL IMPLANTATION PHACOEMULS IFICATION, CATARACT, WITH I OL IMPLANTATION LEF T EYE; Surgeon: Mark Ha MD; Location: [facility] OR; Service: Ophthal mology; Laterality: Left ; Medical devices from this surgery are in t he Implants section. Medical History Medical History Date Comments Lupus (HCC) Depression History of transfusion Kidney stones Kidney infection Osteoporosis Stroke (HCC) GERD (gastroesophageal reflux disease) Uterine cancer (HCC) Disease of thyroid gland Family History Medical History Relation Name Comments [...] Assigned at Date Recorded Not on file Last Filed Vital Signs Not on file Plan of Treatment Health Maintenance Due Date Last Done Comments BREAST CANCER SCREENING 2001 COLONOSCOPY SCREENING 2001 SHINGLES VACCINES (#1) 2001 65+ PNEUMOCOCCAL VACCINE (1 of - 02/20/2016 PPSV23) INFLUENZA VACCINE 11/04/2019 12/08/2018, 01/28/2018, 03/09/2006, Additional history exists Implants Implanted Type Area Utility Locate Technician Device Shelf Model / Identifier Expiration Serial / Lot Date Lens Iol Bicnvx 1pc Acryl +21.5d 6x13mm Tecnis - [id number] - [id number] Intraocular Right: ADVANCED 06/04/2018 [id number] 5 / Implanted: Qty: 1 on 09/01/2016 by Mark Ha MD at [facility] Lens Implant Eye [employer] [id number] / INC [id number] Lens Iol Bicnvx 1pc Acryl +22.0d 6x13mm Tecnis - [id number] Intra ocular ADVANCED [id number] 22 0 / Implanted: Qty: 1 on 09/08/2016 by Mark Ha MD at [facility] Lens Implant [employer] / INC Procedures Procedure Name Priority Date/Time Associated Diagnosis Comme nts FUNGUS CULTURE Routine 01/16/2020 4:23 PM Result s for this CDT procedure are i n the results section. SURGICAL PATHOLOGY Routine 01/16/2020 3:44 PM Re sults for this REQUEST CDT procedure are i n the results section. EYE CULTURE Routine 01/16/2020 3:23 PM Results for this CDT procedure are i n the results section. after 03/13/2019 Results Fungus culture (01/16/2020 4:23 PM CDT) Fungus culture Diamond albicans [facility] The performance characteristics of this assay on this isolate were validated by the Microbiology Laboratory at [facility]. This source has not been approve d by the U.S. Food and Drug Administration. The results are n ot intended to be used as the sole means for clinical ahsan gnosis or patient management. The Microbiology Laboratory i s authorized under the clinical Laboratory Improvement Amendments of 1988 (CLIA-88) to perform high complexit y testing. (A) Comment: Specimen Information Specimen Source: Cornea Specimen Site: Left Eye Specimen Cornea Organism Antibiotic Method Susceptibility Diamond albicans Micafungin BP 0.016 mcg/mL: S usceptible Diamond albicans Amphotericin B BP 0.12 mcg/mL: Hernandez sceptible Diamond albicans Posiconazole BP 0.06 mcg/mL Diamond albicans Voriconazole BP 0.016 mcg/mL: S usceptible Diaomnd albicans Itraconazole BP 0.12 mcg/mL: Hernandez sceptible Diamond albicans Fluconazole BP 0.25 mcg/mL: Hernandez sceptible Performing Organization Address City/[facility] Phon e Number [facility] DEPARTMENT OF PATHOLOGY AND [address] [place] [phone] GENOMIC MEDICINE [address] [address] Surgical pathology request (01/16/2020 3:44 PM CDT) [facility] DEPARTMENT OF PATHOLOGY AND GENOMIC MEDICINE Surgical pathology See link below [facility] DEPARTMENT OF report for PDF Lab PATHOLOGY AND Report GENOMIC MEDICINE Result status This is Final [facility] DEPARTMENT OF Report for PATHOLOGY AND [id number] GENOMIC MEDICINE Specimen Performing Organization Address City/[facility] Phon e Number [facility] DEPARTMENT OF PATHOLOGY AND [address] [place] [phone] GENOMIC MEDICINE Eye culture (01/16/2020 3:23 PM CDT) Eye culture Streptococcus mitis group [facility] Growth first detected on Blood/Chocolate agar on d ay 1 susceptibility to follow Interpretations of the HUBERT values are based on serum a nd urine levels. Interpret results accordingly. (A) Comment: Specimen Information Specimen Source: Cornea Specimen Site: Left Eye Specimen Cornea Organism Antibiotic Method Susceptibility Streptococcus mitis group Ampicillin BP 0.19 m cg/mL: Susceptible Streptococcus mitis group Erythromycin BP 2 mcg/ mL: Resistant Streptococcus mitis group Penicillin G BP 0.047 mcg/mL: Susceptible Streptococcus mitis group Vancomycin BP 1 mcg/ mL: Susceptible Streptococcus mitis group Azithromycin BP 8 mcg/ mL Streptococcus mitis group Ciprofloxacin BP 3 mcg/ mL Streptococcus mitis group Moxifloxacin BP 0.19 m cg/mL Streptococcus mitis group Ofloxacin BP 3 mcg/ mL: Resistant Performing Organization Address City/State/ZIP Code Phon e Number [facility] DEPARTMENT OF PATHOLOGY AND [address] [place] [phone] GENOMIC MEDICINE [address] [address] after 03/13/2019 Insurance Payer Benefit Plan / Subscriber ID Effective Phone Address T ype Group Dates MEDICARE MEDICARE PART A [id number] 2016-Pre [place] Medicare AND B sent COMMERCIAL MISC MISC COMMERCIAL [id number] 2016-Pre Commercial sent Advance Directives For more information, please contact: [phone] Type Date Recorded Patient Planer Stone Explanati on Advance Directives, Living Will and Medical Power of Bracelet Maker Novelty
--- OUTSIDE RECORDS SUMMARY | 2020-03-13 15:47 | XMS REPORT | Continuity of Care Document ---
:1950 Author Organization [facility] Care Team Providers Name Role Phone ClearAccess Unavailable Un available Problems Problem Status Onset Classification Date Comments Sourc e Date Reported DX: Active 05/22/19 J47.1=BRONCHIECTAS 20 [place] IS WITH (ACUTE) EX PFT --- CT CHEST Active 05/23/19 WO CONTRAST DX: 19 [place] CHRONIC Generalized 06/06/19 09/07/2017 [facility] abdominal 18 [place] tenderness Abnormal reflex 05/13/19 08/14/2017 [facility] 18 [place] E66.9, Z71.3, Active 04/19/19 Memori al R11.2 18 [place] ABD PAIN Active 08/29/19 13 [place] NERUOLOGY, Active 08/29/19 DIZZINESS WITH [address] [place] [address] 536.8/787.99/V76.5 Active 01/07/20 M H 1 11 [place] UNK Active 01/07/20 11 [place] Dietary counseling 07/30/2017 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 [place] Body mass index 09/07/2017 (BMI) 32.0-32.9, [place], adult [facility] [place] Acquired absence 09/07/2017 [facility] of other specified [place] parts 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, cervical region Hypothyroid Resolved Problem 08/31/2012 [place] Lupus Resolved Problem 08/31/2012 [place] Stroke Resolved Problem 08/31/2012 [place] DIZZINESS AND Active MH GIDDINESS [place] OBESITY, Active [facility] UNSPECIFIED Neil DIETARY COUNSELING Active [facility] AND SURVEILLANCE [...] Brooks MH mg oral PO, Q6H, 4 [facility] tablet tab, Substitution Allowed aspirin 325 325 mg, 1 tab, PO No [facility] mg tablet, Route: PO, [facility] enteric Drug form: Active coated ECTAB, Daily, Dosing Weight 63.636, kg, Start date: 08/29/12 4:17:00, Duration: 30 day, Stop date: 09/27/12 9:00:00 morphine 2 mg, 1 mL, IVP No [place] Sulfate Route: IVP, [facility] Drug form: Active INJ, ONCE, Dosing Weight 63.636, kg, Priority: STAT, Start date: 08/29/12 4:07:00, Stop date: 08/29/12 4:07:00 meclizine 12.5 mg, 1 PO No [facility] MH tab, Route: [facility] PO, Drug form: Active TAB, Q8H, Dosing Weight 63.636, kg, Priority: STAT, Start date: 08/29/12 4:07:00, Duration: 30 day, Stop date: 09/28/12 0:00:00 Zofran 4 mg, 2 mL, IVP No [place] Route: IVP, [facility] Drug form: Active INJ, Q4H, Dosing Weight 63.636, kg, PRN Nausea, Priority: STAT, Start date: 08/29/12 4:07:00, Duration: 30 day, Stop date: 09/28/12 4:06:00 labetalol 10 mg, 2 mL, IVP No [place] Route: IVP, [address] Drug form: Active INJ, Q10Min, Dosing Weight 63.636, kg, PRN Hypertension, Start date: 08/29/12 4:07:00, Duration: 30 day, Stop date: 09/28/12 4:06:00, For SBP > 180mmHg and/or DBP > 105mmHg enoxaparin 63.636 mg, SUB-Q No [facility] Route: SUB-Q, [address] Drug form: Active INJ, ONCE, Dosing Weight 63.636, kg, Priority: STAT, Start date: 08/29/12 3:42:00, Stop date: 08/29/12 3:42:00 meclizine 25 mg, Route: PO [facility], [facility] form: [address] TAB, ONCE, Active Dosing Weight 63.636, kg, Priority: STAT, Start date: 08/29/12 0:48:00, Stop date: 08/29/12 0:48:00 ondansetron 4 mg, Route: IVP No EvansValdez IVP, ONCE, [facility] Dosing Weight Active 63.636, kg, Priority: STAT, Start date: 08/29/12 0:48:00, Stop date: 08/29/12 0:48:00 Saline Flush 5 ml, Route: IVP No [facility] 0.9% IVP, Drug [facility] Form: INJ, Active Dosing Weight [...] Carlos Ringers IV Rate: 40 Longer 011 [facility] 1,000 mL ml/hr, Infuse Active [...] codeine Assertion Propensity Active MH to adverse [facility] reactions to drug Immunizations Immunization Date Site Status Last Comments Source Given Updated influenza virus Right completed [facility] vaccine, 6 deltoid [place],[facility] inactivated [facility], [facility] Joie and influenza virus completed [facility] [place] vaccine, 6 inactivated Results Order Name Results Value Reference Date Interpretation Comments Lillie rce Range CHEMISTRY Total CK 113 12 - 191 08/29 Normal /2012 [facility] CHEMISTRY Troponin-I <0.02 0.00 - 08/29 Normal 0.40 [facility] CHEMISTRY CK MB Index 1.0 0.0 - 2.5 08/29 Normal [facility] CHEMISTRY CK MB 1.1 0.5 - 3.6 08/29 Normal [facility] Microbiolo Culture: 08/29 gy Urine /2012 [facility] URINALYSIS UA Protein Negative mg/dL Negative 08/29 Normal (08/29/2012 02:53:00) [place] URINALYSIS UA Glucose Negative mg/dL Negative 08/29 NA MH *NA* /2012 [facility] (08/29/2012 02:53:00) URINALYSIS UA Ketones Trace mg/dL Negative 08/29 ABN MH *ABN* /2012 [facility] (08/29/2012 02:53:00) URINALYSIS UA Bili Negative Negative 08/29 NA *NA* /2012 [facility] (08/29/2012 02:53:00) URINALYSIS UA pH 5.0 5.0 - 8.0 08/29 Normal [facility] URINALYSIS UA Mucus Few /LPF None Seen 08/29 NA *NA* /2012 [facility] (08/29/2012 02:53:00) URINALYSIS UA Blood Small Negative 08/29 ABN *ABN* /2012 [facility] (08/29/2012 02:53:00) URINALYSIS UA Leuk Est Trace Negative 08/29 ABN *ABN* [facility] (08/29/2012 02:53:00) URINALYSIS UA Nitrite Negative Negative 08/29 Normal (08/29/2012 02:53:00) [place] URINALYSIS UA RBC 1 0 - 2 08/29 Normal [facility] URINALYSIS UA Sq Epi Occasional /LPF Few 08/29 [facility] *NA* [facility] (08/29/2012 02:53:00) URINALYSIS UA WBC 4 0 - 5 08/29 Normal [facility] URINALYSIS UA 0.1 - 1.0 08/29 [facility] Urobilinogen [facility] URINALYSIS UA Spec Grav 1.018 <=1.030 08/29 Normal [facility] URINALYSIS UA Color Yellow Yellow 08/29 [facility] *NA* [facility] (08/29/2012 02:53:00) URINALYSIS UA Turbidity Clear Clear 08/29 Normal (08/29/2012 02:53:00) [facility] Total CK 118 12 - 191 08/29 Normal [facility] CHEMISTRY CK MB 0.6 0.5 - 3.6 08/29 Normal [facility] CHEMISTRY Troponin-I <0.02 0.00 - 08/29 Normal 0.40 [facility] CHEMISTRY eGFR 61 08/29 NA [...] ALT 28 0 - 65 08/29 Normal [facility] CHEMISTRY Albumin Lvl 3.8 3.5 - 5.0 08/29 [facility] CHEMISTRY AGAP 11.5 10.0 - 08/29 Normal MH 20.0 [facility] CHEMISTRY AST 22 0 - 37 08/29 [facility] CHEMISTRY Bili Total 0.3 0.2 - 1.3 08/29 [facility] CHEMISTRY Alk Phos 79 39 - 136 08/29 [facility] CHEMISTRY B/C Ratio 19 6 - 25 08/29 [facility] CHEMISTRY A/G Ratio 1.0 0.7 - 1.6 08/29 [facility] CHEMISTRY Globulin 3.9 2.0 - 4.0 08/29 [facility] CHEMISTRY Total 7.7 6.4 - 8.4 08/29 Normal [facility] CHEMISTRY Calcium Lvl 8.9 8.5 - 10.5 08/29 [facility] CHEMISTRY CO2 26 24 - 32 08/29 [facility] CHEMISTRY Creatinine 1.0 0.5 - 1.4 08/29 [facility] CHEMISTRY BUN 19 7 - 22 08/29 [facility] CHEMISTRY Glucose Lvl 105 70 - 99 08/29 HI <sup>2</sup>I nterpretive [facility] Data: Adult reference range values reflect the clinical guidelines
of the [place] [employer]. CHEMISTRY Potassium 3.5 3.5 - 5.1 08/29 Normal MH [facility] CHEMISTRY Sodium Lvl 140 135 - 145 08/29 [facility] CHEMISTRY Chloride Lvl 106 95 - 109 08/29 [facility] CHEMISTRY CK MB Index 0.5 0.0 - 2.5 08/29 [facility] HEMATOLOGY MCHC 33.2 32.0 - 08/29 Normal 36.0 /2012 [facility] HEMATOLOGY RDW 14.7 11.5 - 08/29 HI 14.5 /2012 [facility] HEMATOLOGY Platelet 301 133 - 450 08/29 Normal /2012 [facility] HEMATOLOGY MPV 6.9 7.4 - 10.4 08/29 LOW /2012 [facility] HEMATOLOGY Hgb 13.9 12.0 - 08/29 Normal 16.0 /2012 [facility] HEMATOLOGY WBC 12.2 3.7 - 10.4 08/29 HI /2012 [facility] HEMATOLOGY RBC 4.73 4.20 - 08/29 Normal MH 5.40 /2012 [facility] HEMATOLOGY MCH 29.3 27.0 - 08/29 Normal 31.0 /2012 [facility] HEMATOLOGY MCV 88.3 81.0 - 08/29 Normal 99.0 /2012 [facility] HEMATOLOGY Hct 41.8 36.0 - 08/29 Normal 48.0 /2012 [facility] HEMATOLOGY Lymphocytes 21.0 20.0 - 08/29 Normal 40.0 /2012 [facility] HEMATOLOGY Segs 72.5 45.0 - 08/29 Normal 75.0 /2012 [facility] HEMATOLOGY Monocytes 4.2 2.0 - 12.0 08/29 Normal /2012 [facility] HEMATOLOGY Basophils 0.5 0.0 - 1.0 08/29 Normal /2012 [facility] HEMATOLOGY Lymphocytes 2.6 1.0 - 5.5 08/29 Normal # /2012 [facility] HEMATOLOGY Eosinophils 1.8 0.0 - 4.0 08/29 Normal /2012 [facility] Segs-Bands # 8.8 1.5 - 8.1 08/29 HI /2012 [facility] Basophils # 0.1 0.0 - 0.2 08/29 Normal [facility] HEMATOLOGY Monocytes # 0.5 0.0 - 0.8 08/29 Normal /2012 [facility] HEMATOLOGY Eosinophils 0.2 0.0 - 0.5 08/29 Normal /2012 [facility] Pathology Reports No Data Provided for This Section Diagnostic Reports Report Value Date Source Chest wo contrast CT Radiation Dose CTDIVOL = 0 (mGy): DLP = 160.16 (mGy-cm) 05/26/2019 [facility] PROCEDURE INFORMATION: Exam: CT Chest Without [...] scarring. Jose Lorenzo MD On 05/27/2019 08:44:50; -[facility] [id number] Abdomen w IV contrast Clinical indication: - abnormal CT sc an, liver cyst 10/31/[address] [place] [address] Comparison: CT abdomen pelvis 06/01/2017 TECHNIQUE: [...] adenoma. 4. Small periampullary duodenal diverticulum. SL: [id number] Chest wo contrast CT CLINICAL INDICATION: 68 year s old Female with - R06.02 Shortness of breath, J44.1 Chronic obstructive pulmonary disease with (acute) exacerbation. 05/31/2018 [facility] COMPARISON: CT chest 09/09/2017 TECHNIQUE: Sequential [...] in 1 year to document stability/resolution. SL: [id number] Chest wo contrast CT CT THORAX WITHOUT IV CONTRAST 09/09/2017 JEM DUMONT [place] HISTORY: ; J44.1 Chroni c obstructive pulmonary [...] gland, trace atherosclerotic calcification, and cholecystectomy. SL: [id number] Abdomen/Pelvis w/wo CT ABDOMEN/PELVIS WITHOUT AND WITH [...] fat-containing umbilical hernia, trace aortoiliac calcification. SL: [id number] Spine cervical wo Patient Name: ZA GARCES 05/08/2017 [facility] [place] contrast MRI : 1950; Age: 67 years y/o Female MR: [id number] Study: Spine cervical wo contrast MRI 05/08/2017 9 :07 AM [employer] Ordering Physician: Aide Bliss MD Clinical Indication: [...] of the study. IMPRESSION: Normal gastric emptying. [id number] Carotid artery BILATERAL CAROTID ULTRASOUND: 08/29/2012 [facility] bilateral Duplex US HISTORY: Rule out [...] contrast MRI MRI BRAIN WITHOUT CONTRAST 08/29/2012 [facility] CLINICAL INFORMATION: Vertigo. possible thrombus seen [...] SL: 12 Brain without MRA BRAIN 08/29/2012 [facility] contrast MRA INDICATION: vertigo/possible thrombus seen in M CA on CT TECHNIQUE: 3D MRA time of flight images were do ne of the [place]. COMPARISON: MRI and CT brain [...] No aneurysm is identified. IMPRESSION: Grossly normal [place]. No evidence of an aneurysm. SL: [address] HEAD WITHOUT CONTRAST. 08/29/2012 [facility] CLINICAL INDICATION: Behavioral changes. DIZZY NAUSEA S/P [...] MH [place] Heart Rate 111.0 01/22/2011 [facility] Temperature Oral (F) 98.8 F 01/20/2011 [place] Weight 58.182 01/20/2011 [facility] Height 152.4 cm 01/20/2011 [facility] Encounters Location Location Encounter Encounter Reason Attending ADM DC Stat us Source Details Type Number For Provider Date Date Visit GASTON [id number] DEBBIE 01/22 01/22 Discharg [facility] [address] MH OU [id number] NERUOLOG HERO BROOKS 08/29 08/29 Active [facility] 4 Y, /2012 [facility] st S WITH ABNORMAL CT [facility] Outpatient [id number] Debbie 04/23 04/24 [facility] 5 [facility] Outpt Diag [id number] Aide 05/08 05/09 M H [facility] Out[facility] 0 [facility] [place] [facility] Outpt Diag [id number] Debbie 06/01 06/02 [facility] 1 [place] [facility] Outpt Diag [id number] Rajesh Lechin 09/09 09/10 [facility] [place] [facility] Outpatient [id number] Rajesh Lechin 05/31 06/01 [facility] Outpt Diag [id number] Debbie 10/31 11/01 [facility] 3 [place] [facility] Outpatient [id number] Rajesh Lechin 05/26 05/27 [facility] Procedures Procedure Code Date Perfomer Comments Source Arthroscopy of [id number] Hemalatha martinez, knee [facility], [facility] [place] Arthroscopy of [id number] [facility] knee Assessment and Plan No Data Provided for This Section Plan of Care No Data Provided for This Section Social History Social History Date Source Social History TypeResponse 05/27/2019 [facility] Social History TypeResponse 11/01/2018 [facility] [place] Social History TypeResponse 04/24/2017 [facility] Family History No Data Provided for This Section Advance Directives No Data Provided for This Section Functional Status No Data Provided for This Section
--- OUTSIDE RECORDS SUMMARY | 2020-03-13 15:48 | XMS REPORT ---
:1950 Author Organization [facility] Address [address] [place], [place] [place] [address] Care Team Providers Name Role Phone Pineda Unavailable [phone] PROBLEMS Type Condition ICD9-CM [id number] Onset Condition SNOMED Code Notes Code Code Dates Status Problem Hyperlipidemia, mixed E78.2 Active 424042742 Problem H/O: CVA Z86.73 Active 769674912 (cerebrovascular accident) Problem Myocardial infarction I21.3 Active 64425745 Problem Chronic lower back M54.5 Active 466649097 pain Problem Kidney stone N20.0 Active 41697787 Problem Endometrial cancer C54.1 Active 07781524 Problem Osteoporosis, M81.0 Active 85254486 unspecified osteoporosis type, unspecified pathological fracture presence Problem 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 017876706 hypercholesterolemia Problem GERD without K21.9 Active 640976969 esophagitis Problem Cervical radiculopathy M54.12 Active 47674660 Problem Pancolitis K51.00 Active 145930888 Problem Current moderate F32.1 Active 23526160 episode of major depressive disorder without prior episode Problem Fibromyalgia M79.7 Active 496814490 Problem Hypothyroidism E03.9 Active 45530405 Problem 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 Problem Chronic obstructive J44.9 Active 03243505 pulmonary disease, unspecified COPD type Problem Depression F32.9 Active 300163734 Problem Hyperlipidemia E78.5 Active 79787534 Problem Current mild episode F32.0 Active 15471997 of major depressive disorder without prior episode Problem Abnormal mammogram of R92.8 Active 899959880 left breast Problem Abnormal mammogram R92.8 Active 528679814 Problem Noncompliance with Z91.11 Active 739249766 dietary restriction ALLERGIES Allergen (clinical drug Drug/Non Drug Allergy Reaction Allergy Type Onset Date Status ingredient) documented on EMR codeine codeine Unknown Drug Allergy Active ENCOUNTERS from 1950 to 2020-01-29 Encounter Location Date Provider Diagnosis [facility] [address] [facility] Jan, [facility] Edwin martinez for influenza Family Medicine [address], [place] [address] Osteoporosis, unspecified osteoporosis ty pe, unspecified pathological fr acture presence M81.0 IMMUNIZATIONS Vaccine Route Administration Date Status FluAD IM Intramuscular Jan 29, 2020 Administered FLUZONE HIGH DOSE OVER 65 IM Intramuscular Dec 08, 2018 Admin istered Prolia SC Subcutaneous Jan 29, 2020 Administered Prolia SC Subcutaneous August 03, 2019 Administered Prolia SC Subcutaneous Dec 27, 2018 Administered SOCIAL HISTORY Tobacco Use: Social History Observation Description Date Details (start date - stop date) Former Smoker Sex Assigned At : Social History Observation Description Sex Assigned At Unknown PHQ9 Question Answer Notes Little interest or pleasure in doing things Nearly every day Feeling down, depressed, or hopeless More than half the days Trouble falling or staying asleep or sleeping too much Not a t all Feeling tired or having little energy Several days Poor appetite or overeating Several days Feeling bad about yourself, or that you are a failure, Sever al days or have let yourself or your family down Trouble concentrating on things, such as reading the Several days newspaper or watching television Moving or speaking so slowly that other people could Not at all have noticed; or the opposite, being so fidgety or restless that you have been moving around a lot more than usual Total Score 9 Interpretation Mild Depression Thoughts that you would be better off or of Not at all hurting yourself in some way Alcohol Screen Question Answer Notes Did you have a drink containing alcohol in the past year? No Points 0 Interpretation Negative Tobacco Use/Smoking Question Answer Notes Are you a former smoker REASON FOR REFERRAL No Information VITAL SIGNS No information MEDICATIONS Medication SIG (Take, Route, Frequency, Start Date End Date Status Duration) Celebrex 200 MG 1 capsule with food Orally Active Once a day Ventolin HFA 90 MCG/ACT 2 puffs as needed Inhalation Active every 6 hrs Praluent 75 MG/ML 1 im Subcutaneous every 2 Active weeks for 30 days Prozac 40 MG 1 capsule Orally Once a day Active for 90 days Synthroid 300 MCG 1 tablet in the morning on an Active empty stomach (NAME BRAND ONLY) Orally Once a day for 90 days Prolia 60 MG/ML INJECT 1ML (60MG DOSE) Ac tive SUBCUTANEOUSLY EVERY 6 MONTHS. for 180 Ultram 50 MG 1 tablet as needed Orally Ac tive every 6 hrs Symbicort 160-4.5 MCG/ACT 2 puffs Inhalation Twice a Active day Synthroid 300 MCG 1 tablet in the morning on an Active empty stomach Orally Once a day Synthroid 150 MCG 1 tablet in the morning on an Not-Taking empty stomach Orally Once a day Synthroid 150 MCG 1 tablet on an empty stomach Active in the morning ( 200 + 50 mcg) Orally Once a day for 90 days PROCEDURES No Information RESULTS No Results REASON FOR VISIT Flu and Prolia inj. In office. MEDICAL (GENERAL) HISTORY Type Description Date Medical History Chronic lower back pain Medical History Myocardial infarction Medical History H/O: CVA (cerebrovascular accident) Medical History Hyperlipidemia Medical History Hypothyroidism Medical History Depression Medical History Kidney stone Medical History Endometrial cancer Medical History Chronic obstruct airways disease Medical History Familial hypercholesterolemia Medical History Hyperlipidemia, mixed Medical History Fibromyalgia Medical History Chronic obstructive pulmonary disease, u nspecified COPD type Medical History Cervical radiculopathy Medical History GERD without esophagitis Medical History Osteoporosis, unspecified osteoporosis t ype, unspecified pathological fracture presen ce Medical History Pancolitis Surgical History section 1968 1969 1972 Surgical History hysterectomy 1974 Surgical History cholecystectomy LAPAROSCOPIC 06/2016 Surgical History Trapezium resection, replacement with li gament 10/2019 reconstruction, splint, left hand Dr. Melendez rndeski Goals Section No Information Health Concerns No Information MEDICAL EQUIPMENT No Information MENTAL STATUS No Information FUNCTIONAL STATUS No Information ASSESSMENTS Encounter Date Diagnosis Notes Jan, Osteoporosis, unspecified osteoporosis t ype, unspecified pathological fracture presence (ICD-10 - M81.0) Jan, Need for influenza vaccination (ICD-10 - Z23) PLAN OF TREATMENT Treatment Notes Assessment Notes Clinical Notes Osteoporosis, unspecified Prolia given to [place] SQ. pt osteoporosis type, unspecified tolerated well.Prolia lot pathological fracture presence Next Appt Details prn Reason: Provider Name:Biju Pineda, 2020-03-06 0 9:15:00 AM, [address], [address], [place], [address], Provider Name:Biju Pineda, 2020-03-13 0 9:30:00 AM, [address], [address], [place], [address], Insurance Providers Payer Name Payer Address Payer Insured Patient Coverage Cover age Phone Name Relationship to Start Date End Date Insured Med[employer] [address] [address] REYES [phone] Newman self Insurance [facility] [id number] [id number] MEDICARE Attn Part B [id number] Josr Newman self [employer] [address] a [address] [place] [phone]
--- OUTSIDE RECORDS SUMMARY | 2020-03-13 15:48 | XMS REPORT | Continuity of Care Document ---
:1950 Author Organization [facility] t Address [address] [place] [address] Care Team Providers Name Role Phone Cecil Pineda DO Primary Care Physician Adelso Malhotra MD Attending Clinician Samson WINTERS, K.H. Attending Clinician Israel Mixon Attending Clinician Sherman Gonzalez Attending Clinician Denise Bliss Attending Clinician Payers Payer Name Policy Type Policy Effective Date Expiration Date Sour ce Number MEDICAREMEDICARE PART [id number] 2016 Al Dickey AND 00:00:00 Christianity [id number] CheungMedicare COMMERCIAL MISCMISC 2016 [place] COMMERCIALxxxxxxxxxx3 911 00:00:00 Met resendiz 66890/04/2015-[facility] ommercial Problems Condition Condition Condition Status Onset Resolution Last Treating Co mments Source Name Details Category Date Date Treatment Clinician Date DX: Diagnosis Active 2019-05-27 Mem oria J47.1=BRON 2-17 06:25:00 l CHIECTASIS DX: 00:00: Jg n WITH J47.1=BRON 00 (ACUTE) EX CHIECTASIS WITH (ACUTE) EX Active 05/22/2019 [facility] PFT --- CT Diagnosis Active 2018-05-31 Memoria CHEST WO -18 13:13:00 l CONTRAST PFT --- 00:00: Estrellita nn DX: CT CHEST 00 CHRONIC WO CONTRAST DX: CHRONIC Active 05/23/2018 [facility] E66.9, Diagnosis Active 2017-04-23 Mem oria Z71.3, 1-15 09:47:00 l R11.2 E66.9, 00:00: Neil Z71.3, 00 R11.2 Active 04/19/2017 [facility] Neil ABD PAIN Diagnosis Active 2012-08-29 M emoria 08-28 04:06:00 l ABD PAIN 23:00: Jg n 00 Active 08/28/2012 [place] NERUOLOGY, Diagnosis Active 2012-08-30 Memoria DIZZINESS 08-28 09:15:00 l WITH 23:00: Neil ABNORMAL NERUOLOGY, 00 CT DIZZINESS WITH ABNORMAL CT Active 3 [facility] 536.8/787. Diagnosis Active 2010-042011-01-22 Memoria 99/V76.51 0-04 05:59:00 l 00:00: Neil 536.8/787. 00 99/V76.51 Active 01/06/2011 [facility] UNK Diagnosis Active 2010-042011-01-20 Mem oria 0-04 15:47:00 l UNK 00:00: [place] 00 Active 01/06/2011 [facility] Dietary Problem 2017-07-30 Arjun radha counseling 15:07:52 l and Dietary [place] surveillan counseling ce and surveillan ce 07/30/2017 [facility] Obesity, Problem 2017-09-07 Mem oria unspecifie 12:50:50 l d Obesity, Jg n unspecifie d 09/07/2017 Deepali Chapin OPIJacqueline [place] Other Problem 2017-09-07 Memor ia specified 12:50:50 l diseases Other Neil of liver specified diseases of liver 09/07/2017 TIM [place] Umbilical Problem 2017-09-07 Me moria hernia 12:50:50 l without [place] obstructio 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 n or gangrene 09/07/2017 [facility] Benign Problem 2017-09-07 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:50:50 l 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 09/07/2017 [facility] Body mass Problem 2017-09-07 Me moria index 12:50:50 l (BMI) Body [place] 32.0-32.9, mass index adult (BMI) 32.0-32.9, adult 09/07/2017 [facility] Acquired Problem 2017-09-07 Mem oria absence of 12:50:50 l other Acquired Jg n specified absence of parts of other digestive specified tract parts of digestive tract 09/07/2017 [facility] Spondylosi Problem 2017-08-14 M emoria s without 11:24:09 l myelopathy Jg n or Spondylosi radiculopa s without thy, myelopathy cervical or region radiculopa thy, cervical region 08/14/2017 [facility] Hypothyroi Problem Resolve 2019-05-28 Memoria dism d 23:42:33 l (disorder) Jg n Hypothyroi dism (disorder) Resolved Problem [facility]/28[facility]2019 [facility] Lupus Problem Resolve 2019-05-28 Arjun radha erythemato d 23:42:33 l dave Lupus [place] (disorder) erythemato dave (disorder) Resolved Problem 05/28/2019 [facility], [facility] Cerebrovas Problem Resolve 2019-05-28 Memoria cular d 23:42:33 l accident [place] (disorder) Cerebrovas cular accident (disorder) Resolved Problem 05/28/2019 [facility], [facility] Hypothyroi Problem Resolve 2012-08-31 Memoria d d 20:30:55 l [place] Hypothyroi d Resolved Problem 08/31/2012 [facility] Lupus Problem Resolve 2012-08-31 Arjun radha d 20:30:55 l Lupus Neil Resolved Problem 08/31/2012 [facility] Stroke Problem Resolve 2012-08-31 Arjun radha d 20:30:55 l Stroke [place] Resolved Problem 08/31/2012 [facility] DIZZINESS Diagnosis Active 2012-08-30 Memoria AND 09:15:00 l GIDDINESS [place] DIZZINESS AND GIDDINESS Active [facility] OBESITY, Diagnosis Active 2017-04-23 M emoria UNSPECIFIE 09:47:00 l D OBESITY, Jg n UNSPECIFIE D [facility] DIET[facility] Diagnosis Active 2017-04-23 Me moria COUNSELING 09:47:00 l AND DIETARY Neil SURVEILLAN COUNSELING CE AND SURVEILLAN CE Active [facility] NAUSEA Diagnosis Active 2017-04-23 Mem oria WITH 09:47:00 l VOMITING, NAUSEA Estrellita nn UNSPECIFIE WITH D VOMITING, UNSPECIFIE D Active [facility] SHORTNESS Diagnosis Active 2018-05-31 Memoria OF BREATH 13:13:00 l Neil SHORTNESS OF BREATH Active [facility] CHRONIC Diagnosis Active 2018-05-31 Me moria OBSTRUCTIV 13:13:00 l E CHRONIC 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 [place] Allergies, Adverse Reactions, Alerts Allergy Allergy Status Severity Reaction(s) Onset Inactive Treating Comm ents Source Name Type Date Date Clinician Codeine Propensi Active Other (See SEIZURE Al wagner ty to Comments) 5-12 Methodi adverse 00:00: st reaction 00 s to drug codeine Adverse Active Info Not [facility] Reaction [facility] codeine codeine Active Memoria l Neil Family History Family Member Diagnosis Comments Start Date Stop Date Source Natural brother No Known Problems [place] Natural daughter Uterine cancer [place] Natural father Cancer [place] [facility] Natural mother Cancer [place] [facility] Natural sister Heart failure [place] [facility] Natural sister No Known Problems Memo ston Christianity Natural son CABG/Stent [place] Natural son Diabetes [place] Natural son Heart attack [place] [facility] hodist Social History Social Habit Start Date Stop Date Quantity Comments Source Sex Assigned At [place] M ethodist Alcohol intake 2016-09-24 2016-09-24 Current [facility] thodist 00:00:00 00:00:00 non-drinker of alcohol (finding) History of 2016-04-05 Current smoker [facility] thodist tobacco use 00:00:00 Smoking Status Start Date Stop Date Source Former smoker 2016-09-24 00:00:00 2016-09-24 00:00:00 [place] Medications Ordered Filled Start Stop Current Ordering Indication Dosage Frequency Signature Comments Components Source Medication Medication Date Date Medication? Clinician (SIG) Name Name Praluent Praluent Yes Biju [address] [facility] FLUoxetine Yes 40mg QD Take [...] Vega tab, PO, l enteric 18:53: Daily, [place] coated 55 with food, 14 tab, Substituti on Allowed, ECTABwith food Antivert 25 Yes Prabhakar Patricio 25 mg, 1 Memoria mg oral 5-27 Vega tab, PO, l tablet 18:50: Q6H, 4 Neil 16 tab, Substituti on Allowed aspirin 325 No Prabhakar Patricio 325 mg, 1 Memoria mg tablet, 5-27 Vega tab, l enteric 09:17: Route: PO, Herm nunu coated 00 Drug form: ECTAB, Daily, Dosing Weight 63.636, kg, Start date: 08/29/12 4:17:00, Duration: 30 day, Stop date: 09/27/12 9:00:00 morphine 2012-0 No Prabhakar Patricio 2 mg, 1 Me moria Sulfate 5-27 Vega mL, Route: l 09:07: IVP, Drug [place] 00 form: INJ, ONCE, Dosing Weight 63.636, kg, Priority: STAT, Start date: 08/29/12 4:07:00, Stop date: 08/29/12 4:07:00 meclizine 2012-0 No Prabhakar Patricio 12.5 mg, 1 Memoria 5-27 Vega tab, l 09:07: Route: PO, Neil 00 Drug form: TAB, Q8H, Dosing Weight 63.636, kg, Priority: STAT, Start date: 08/29/12 4:07:00, Duration: 30 day, Stop date: 09/28/12 0:00:00 Zofran 2012-0 No Prabhakar Patricio 4 mg, 2 Arjun radha 5-27 Vega mL, Route: l 09:07: IVP, Drug Neil form: INJ, Q4H, Dosing Weight 63.636, kg, PRN Nausea, Priority: STAT, Start date: 08/29/12 4:07:00, Duration: 30 day, Stop date: 09/28/12 4:06:00 labetalol 2012-0 No Prabhakar Patricio 10 mg, 2 Memoria 5-27 Vega mL, Route: l 09:07: IVP, Drug [place] form: INJ, Q10Min, Dosing Weight 63.636, kg, PRN Hypertensi on, Start date: 08/29/12 4:07:00, Duration: 30 day, Stop date: 09/28/12 4:06:00, For SBP > 180mmHg and/or DBP > 105mmHg enoxaparin 2012-0 No [place] 63.636 mg, Memoria 5-27 Preeti [...] Rate: 40 l 1,000 mL 12:01: ml/hr, [place] 1,000 mL 00 Infuse over: 25 hr, Route: IV, Total Volume: 1,000, Start date: 01/22/11 7:01:00, Duration: 30 day, Stop date: 02/21/11 7:00:00 influenza 2005- No Prabhakar Patricio 0.5 ml, M emoria virus 2-05 Vega Route: IM, l vaccine, 23:00: Drug form: Her martinez inactivated 00 INJ, Start date: 03/09/06 17:00:00, Stop date: 03/09/06 17:00:00 Ultram Ultram Yes Biju [facility] [address] [facility] Ventolin Ventolin Yes Biju [address] [facility] [facility] HFA HFA [facility] needed [facility] Symbicort Symbicort Yes Biju [address] [facility] Prozac Prozac Yes Biju [address] [facility] Prolia Prolia Yes Biju INJECT 1ML [facility] (60MG [facility] - DOSE) Memoria SUBCUTANEO l USLY EVERY Outpati 6 MONTHS. ent Clinics Synthroid Synthroid Yes Biju [address] [facility] [facility] in the [facility] - morning on Memoria an empty l [facility] Synthroid Synthroid Yes Biju [address] [facility] in the [facility] - morning on Memoria an empty l stomach Outpati ent Clinics Celebrex Celebrex Yes Biju [address] [facility] [facility] with food [facility] Immunizations Ordered Filled Immunization Date Status Comments [facility] Immunization Name Name FLUZONE HIGH DOSE FLUZONE HIGH DOSE 2018-12-[address] [facility] - OVER 65 OVER 65 00:00:00 [facility] Vital Signs Vital Name Observation Time Observation Value Comments Source BMI Calculated 2018-05-31 19:30:00 Lynnette al Neil Weight 2018-05-31 19:30:00 [facility] [place] Height 2018-05-31 19:30:00 152.4 cm [facility] Heart Rate 2012-08-29 17:00:00 [facility] Temperature Oral (F) 2012-08-29 17:00:00 98.3 F [facility] Respitory Rate 2012-08-29 17:00:00 Lynnette al [place] Systolic (mm Hg) 2012-08-29 17:00:00 Arjun walden [place] Diastolic (mm Hg) 2012-08-29 17:00:00 [facility] orial [place] Weight 2012-08-29 13:00:00 [facility] Height 2012-08-29 13:00:00 162.5 cm [facility] Neil Systolic (mm Hg) 2012-08-29 13:00:00 Arjun rial Neil Respitory Rate 2012-08-29 13:00:00 Memori al [place] Heart Rate 2012-08-29 13:00:00 [facility] [place] Temperature Oral (F) 2012-08-29 13:00:00 98.1 F [facility] [place] Diastolic (mm Hg) 2012-08-29 13:00:00 Mem orial [place] Respitory Rate 2012-08-29 11:00:00 Memori al Neil Temperature Oral (F) 2012-08-29 11:00:00 97.8 F [facility] [place] Heart Rate 2012-08-29 11:00:00 [facility] Neil Diastolic (mm Hg) 2012-08-29 11:00:00 Mem orial Neil Systolic (mm Hg) 2012-08-29 11:00:00 Arjun rial [place] Height 2012-08-29 09:20:00 152.4 cm [facility] Neil Weight 2012-08-29 09:20:00 [facility] Neil Weight 2012-08-29 05:10:00 [facility] Neil Height 2012-08-29 05:10:00 162.56 cm [facility] Neil Diastolic (mm Hg) 2011-01-22 14:15:00 Mem orial Neil Systolic (mm Hg) 2011-01-22 14:15:00 Arjun rial Neil Respitory Rate 2011-01-22 14:15:00 Memori al Neil Heart Rate 2011-01-22 14:15:00 [facility] Neil Diastolic (mm Hg) 2011-01-22 14:00:00 Mem orial Neil Systolic (mm Hg) 2011-01-22 14:00:00 Arjun rial [place] Respitory Rate 2011-01-22 14:00:00 Memori al Neil Heart Rate 2011-01-22 14:00:00 [facility] [place] Diastolic (mm Hg) 2011-01-22 13:42:00 Mem orial [place] Respitory Rate 2011-01-22 13:42:00 Memori al [place] Systolic (mm Hg) 2011-01-22 13:42:00 Arjun rial [place] Heart Rate 2011-01-22 13:42:00 [facility] Neil Temperature Oral (F) 2011-01-20 21:41:00 98.8 F [facility] [place] Weight 2011-01-20 21:00:00 [facility] [place] Height 2011-01-20 21:00:00 152.4 cm [facility] Procedures Procedure Date / Time Performed Performing Clinician [facility] e FUNGUS CULTURE 2020-01-16 16:23:00 Cristine Malhotra SURGICAL PATHOLOGY 2020-01-16 15:44:00 Cristine [facility] REQUEST EYE CULTURE 2020-01-16 15:23:00 Cristine Malhotra Arthroscopy of knee [facility] [place] Arthroscopy of knee [facility] Plan of Care Planned Activity Planned Date Details Comments Source Future Scheduled 2019-11-04 INFLUENZA VACCINE [place] [facility] Test 00:00:00 [code = INFLUENZA VACCINE] Future Scheduled 2016-02-20 65+ PNEUMOCOCCAL [place] [facility] Test 00:00:00 VACCINE (1 of 1 - PPSV23) [code = 65+ PNEUMOCOCCAL VACCINE (1 of 1 - PPSV23)] Future Scheduled 2001 BREAST CANCER [facility] thodist Test 00:00:00 SCREENING [code = BREAST CANCER SCREENING] Future Scheduled 2001 [facility] 00:00:00 [code = COLONOSCOPY SCREENING] Future Scheduled 2001 SHINGLES VACCINES (#1) [place] [facility] Test 00:00:00 [code = SHINGLES VACCINES (#1)] Encounters Start End Encounter Admission Attending Care Care Encounter Source Date/Time Date/Time Type Type Clinicians Facility Department ID 2020-02-08 2020-02-08 [id number]00 [facility] Outpat[facility] ent Clinics 2020-01-29 2020-01-29 [id number]00 [facility] Out[facility] Clinics 2020-01-16 2020-01-16 Outpatient [facility] [id number] 00:00:00 00:00:[address] 2019-12-13 2019-12-13 [facility] [id number] 10:20:00 10:20:[address] [facility] Medicine Outpati ent Clinics 2019-12-10 2019-12-10 Telephone Samson [facility] [id number] 00:00:00 00:00:00 Zach Agudelo [id number] [place] [id number] [place] [id number] [address] 2019-12-06 2019-12-06 [facility] [id number] 08:54:00 08:54:00 t Ziffi [facility] Medicine Outpati ent Clinics 2019-09-12 2019-09-12 [facility] [id number] 09:30:00 09:30:00 t Ziffi [facility] Medicine Outpati ent Clinics 2019-08-29 2019-08-29 [facility] [id number] 10:16:00 10:16:00 t Ziffi [facility] Outpat[facility] ent Clinics 2019-08-09 2019-08-09 [facility] [id number] 08:00:00 08:00:00 t Ziffi [facility] Medicine Outpati ent Clinics 2019-08-03 2019-08-03 [facility] [id number] 11:30:00 11:30:00 t Ziffi [facility] Outpat[facility] ent Clinics 2019-07-01 2019-07-01 [facility] [id number] 10:37:00 10:37:00 t Ziffi [facility] Medicine Outpati ent Clinics 2019-06-30 2019-06-30 [facility] [id number] 14:23:00 14:23:00 t Ziffi [facility] Medicine Outpati ent Clinics 2019-06-12 2019-06-12 [facility] [id number] 10:45:00 10:45:00 t Ziffi [facility] Medicine Outpati ent Clinics 2019-05-26 2019-05-26 Outpatient Lechin, MHSE MHSE [id number] 09:52:00 23:59:00 Rajesh Garcia 2019-05-26 2019-05-26 Outpatient MHSE PUL [id number] MH 09:52:00 09:52:00 Feli webster [facility] 2019-05-02 2019-05-02 [facility] [id number] 14:45:00 14:45:00 t Ziffi [facility] Medicine Outpati ent Clinics 2019-04-25 2019-04-25 [facility] [id number] 13:50:59 14:42:51 Visit Zach Agudelo [id number] [place] [id number] Sil[place] [id number] [facility]9 [facility] 2019-03-13 2019-03-13 [facility] [id number] 10:30:00 10:30:00 t Ziffi [facility] Medicine Outpati ent Clinics 2019-03-08 2019-03-08 [facility] [id number] 08:51:00 08:51:00 t Ziffi [facility] Medicine Outpati ent Clinics 2019-02-14 2019-02-14 [facility] [id number] 10:09:00 10:09:00 t Ziffi [facility] Medicine Outpati ent Clinics 2019-01-12 2019-01-12 [facility] [id number] 11:15:00 11:15:00 t Ziffi [facility] Medicine Outpati ent Clinics 2019-01-10 2019-01-10 [facility] [id number] 13:28:00 13:28:00 t Ziffi [facility] Medicine Outpati ent Clinics 2018-12-27 2018-12-27 [facility] [id number] 15:00:00 15:00:00 t Ziffi [facility] Medicine Outpat[facility] ent Clinics 2018-12-08 2018-12-08 [facility] [id number] 10:15:00 10:15:[address] Luke s - Drive [facility] Medicine Outpati ent Clinics 2018-10-31 2018-10-31 Outpatient ALBERTO Gonzalez OIP [id number] 13:05:00 23:59:00 Jason Whitaker 2018-10-20 2018-10-20 [facility] [id number] 11:00:00 11:00:[address] Luke s - Drive [facility] Medicine Outpati ent Clinics 2018-09-21 2018-09-21 [facility] [id number] 14:11:00 14:11:00 t Gravity [employer] Luke s - Drive [facility] Medicine Outpati ent Clinics 2018-07-13 2018-07-13 [facility] [id number] 14:15:00 14:15:[address] Luke s - Drive [facility] Medicine Outpati ent Clinics 2018-06-14 2018-06-14 [facility] [id number] 09:00:00 09:00:00 t Gravity [employer] Luke s - Drive [facility] Medicine Outpati ent Clinics 2018-05-31 2018-05-31 Outpatient HITESH Mixon MHSE [id number] 13:03:00 23:59:00 Rajesh E 06 2018-04-11 2018-04-11 [facility] [id number] 13:45:00 13:45:00 t Gravity [employer] Luke s - Drive [facility] Medicine Outpati ent Clinics 2018-03-15 2018-03-15 [facility] [id number] 09:30:00 09:30:[address] Luke s - Drive [facility] Medicine Outpati ent Clinics 2017-12-03 2017-12-03 [facility] [id number] 09:15:00 09:15:[address] Luke s - Drive [facility] Medicine Outpati ent Clinics 2017-09-09 2017-09-09 Outpatient MatteoALBERTO palacios OIP [id number] 13:49:00 23:59:00 Rajesh E 2017-09-03 2017-09-03 [facility] [id number] 10:00:00 10:00:00 t [employer] [employer] [facility] Outpati ent Clinics 2017-08-02 2017-08-02 [facility] [id number] 15:45:00 15:45:00 t Gravity [employer] Luke s - Drive [facility] Outpati ent Clinics 2017-07-20 2017-07-20 [facility] [id number] 13:45:00 13:45:00 t Gravity [employer] [facility] Outpati ent Clinics 2017-07-05 2017-07-05 [facility] [id number] 15:00:00 15:00:00 t [employer] [facility] Outpati ent Clinics 2017-06-29 2017-06-29 [facility] [id number] 09:15:00 09:15:00 t [employer] [facility] Outpati ent Clinics 2017-06-01 2017-06-01 Outpatient ALBERTO Gonzalez OIP [id number] 10:00:00 23:59:00 Jason Whitaker 2017-05-08 2017-05-08 Outpatient ALBERTO Bliss OIP [id number] 08:46:00 23:59:00 Aide Walker 00 2017-04-23 2017-04-23 Outpatient ANA Gonzalez [facility]PL [id number] 09:34:00 23:59:00 Jasonstalin Whitaker Results Test Description Test Time Test Comments Results Result Comments Source Surgical pathology request 2020-01-17 18:59:23 Test Item Value Reference Range Interpretation Comme nts Case number (test code = [id number]) [id number] Surgical pathology report (test code = See link below for PDF Lab R eport 9939) Result status (test code = [id number]) This is Final Report for [id number] [facility]39-[facility] 12:39:98457Yygwluxz HermannCHEMISTRY 2012-08-29 12:39:00<0.02[facility] TzepcedFSRIYVKOJ5501-19-54 12:39:001.0 [facility] EeephhnXGHKLTNLX5355-36-95 12:39:001.1[facility] HermannURINALYSIS 2012-08-29 07:53:00Negative mg/dL (08/29/2012 02:53:00)[facility] Neil WDWFOHNNIK7386-61-71 07:53:00Negative mg/dL *NA*(08/29/2012 02:53:00)[facility] BnzvefyIDJLYCSJBT3017-93-91 07:53:00Trace mg/dL *ABN*(08/29/2012 02:53:00) [facility] KhbhmnjJLBJKMUQAT8841-85-86 07:53:00Negative *NA*(08/29/2012 02:53:00) [facility] XbrshguSJYVSMSAIW1283-36-67 07:53:005.0[facility] HermannURINALYSIS 2012-08-29 07:53:00Few /LPF *NA*(08/29/2012 02:53:00)[facility] HermannURINALYSIS 2012-08-29 07:53:00Small *ABN*(08/29/2012 02:53:00)[facility] HermannURINALYSIS 2012-08-29 07:53:00Trace *ABN*(08/29/2012 02:53:00)[facility] HermannURINALYSIS 2012-08-29 07:53:00Negative (08/29/2012 02:53:00)[facility] HermannURINALYSIS 2012-08-29 07:53:001[facility] ZtcpsxmXCSFUMGFBW1432-41-49 07:53:00Occasional /LPF *NA*(08/29/2012 02:53:00)[facility] IqveaqlEAWNBRDIHB4340-12-17 07:53:004[facility] YsgawkzYEQADRVFRG7481-35-73 07:53:001.018[facility] CyusnilRRVZSAFHPK0509-95-18 07:53:00Yellow *NA*(08/29/2012 02:53:00)[facility] AtofralFFPIIBSYUX5259-45-39 07:53:00Clear (08/29/2012 02:53:00)[facility] DrrnvesVEDKJTRKS1363-04-06 05:57:00 118[facility] RzeilthMONBDTDRF6307-74-17 05:57:000.6[facility] HermannCHEMISTRY 2012-08-29 05:57:00<0.02[facility] QiizpfjNPSIMXXGR5014-24-18 05:57:0061 [facility] SumouwaYENFGJWLM8689-87-16 05:57:0028[facility] HermannCHEMISTRY 2012-08-29 05:57:003.8[facility] CefqzwqYHNIQCWPJ5474-09-82 05:57:0011.5[facility] IrkehxwPGWWZRKEM4404-26-89 05:57:0022[facility] SgcefngZGXZQREQU8588-72-96 05:57:000.3[facility] EcanndpCQPPRNLJX0909-67-58 05:57:0079[facility] Neil MTRBTOLIQ4223-52-14 05:57:0019[facility] DfotranZYOLJKQGA3521-11-19 05:57:001.0 Memorial YiciereHJNQOVLTK8446-21-95 05:57:003.9[facility] HermannCHEMISTRY 2012-08-29 05:57:007.7[facility] YfhuylqDSRDHXMWL6625-05-72 05:57:008.9[facility] SbaalviFFWHEHMLR9940-89-08 05:57:0026[facility] HelbwaxQWOZHHWMI3714-77-86 05:57:001.0[facility] TjjbfgyTPZTWSRXB8215-71-78 05:57:0019[facility] Neil KJNLOOKNV4228-91-57 05:57:21059Cngenxxp MhrysncOALLUVIIH0547-04-95 05:57:003.5 [facility] NmukxhgWWFKBWYIL6719-56-86 05:57:23442Khxpcipv HermannCHEMISTRY 2012-08-29 05:57:93408Epkoluvs NvlfybmBCWJYANHM5981-87-16 05:57:000.5[facility] OwmtatsGXISNKUXRP8805-79-05 05:57:0033.2[facility] WsxgmpmWTYYSFEBIN8580-14-14 05:57:0014.7[facility] LzkqjkhWJZTOZSZRT2700-52-24 05:57:08783Qcoyrrwq Neil BDOZOEKLUY1026-74-19 05:57:006.9[facility] SqaptcdJNFBILIHQO5048-57-69 05:57:00 13.9[facility] IobrncsZUJEXBNJFJ6264-11-67 05:57:0012.2[facility] HermannHEMATOLOGY 2012-08-29 05:57:004.73[facility] DnofivaQEGCYOJHHL2946-31-69 05:57:00 Test Item Value Reference Range Interpretation Comments MCH (test code = MCH) 29.3 pg 27.0-31.0 N [facility] FgsqfiuPQLGKYARCB2417-11-82 05:57:0088.3[facility] HermannHEMATOLOGY 2012-08-29 05:57:0041.8[facility] DczrykuYCZRGRWRFF8794-63-25 05:57:0021.0[facility] TortnwiURQFBZDLJK1887-87-14 05:57:0072.5[facility] VjlwvcnCCVHPOBACU4841-70-09 05:57:004.2[facility] HrimgqiHASRYIVTGE6992-24-46 05:57:000.5[facility] Neil GZXJKBUCEW2568-91-92 05:57:002.6[facility] EbfreyyFZOFAAULUH1527-10-72 05:57:001.8 [facility] YurcmpbAWHLUNQYLV9412-51-30 05:57:008.8[facility] HermannHEMATOLOGY 2012-08-29 05:57:000.1[facility] TnuhxceQRLFQZTAMY1875-89-59 05:57:000.5[facility] SxhpkreRRXQGCPXSD6897-18-13 05:57:000.2[facility] Neil
--- OUTSIDE RECORDS SUMMARY | 2020-03-13 15:49 | XMS REPORT ---
:1950 Author Organization [facility] Address [address] [place], [address] [place] [address] Care Team Providers Name Role Phone Pineda Unavailable [phone] PROBLEMS Type Condition ICD9-CM [id number] Onset Condition SNOMED Code Notes Code Code Dates Status Problem Hyperlipidemia, mixed E78.2 Active 224524461 Problem H/O: CVA Z86.73 Active 106864072 (cerebrovascular accident) Problem Myocardial infarction I21.3 Active 98792696 Problem Chronic lower back M54.5 Active 258739227 pain Problem Kidney stone N20.0 Active 19991350 Problem Endometrial cancer C54.1 Active 02938909 Problem Osteoporosis, M81.0 Active 69487274 unspecified osteoporosis type, unspecified pathological fracture presence Problem 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 042512708 hypercholesterolemia Problem GERD without K21.9 Active 489133005 esophagitis Problem Cervical radiculopathy M54.12 Active 19305072 Problem Pancolitis K51.00 Active 595327548 Problem Current moderate F32.1 Active 03386669 episode of major depressive disorder without prior episode Problem Fibromyalgia M79.7 Active 847182434 Problem Hypothyroidism E03.9 Active 50487264 Problem 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 Problem Chronic obstructive J44.9 Active 08325151 pulmonary disease, unspecified COPD type Problem Depression F32.9 Active 091189778 Problem Hyperlipidemia E78.5 Active 82993235 Problem Current mild episode F32.0 Active 03171520 of major depressive disorder without prior episode Problem Abnormal mammogram of R92.8 Active 477750104 left breast Problem Abnormal mammogram R92.8 Active 352636443 Problem Noncompliance with Z91.11 Active 215725066 dietary restriction ALLERGIES Allergen (clinical drug Drug/Non Drug Allergy Reaction Allergy Type Onset Date Status ingredient) documented on EMR codeine codeine Unknown Drug Allergy Active ENCOUNTERS from 1950 to 2020-02-08 Encounter Location Date Provider Diagnosis [facility] [address] [facility] Feb, [facility] [address] [facility] [place] [address] for breast can cer Z12.31 IMMUNIZATIONS Vaccine Route Administration Date Status FluAD [...] Information RESULTS No Results REASON FOR VISIT Mammogram order MEDICAL (GENERAL) HISTORY Type Description Date Medical [...] No Information ASSESSMENTS Encounter Date Diagnosis Notes Feb, Encounter for screening mammogram for br east cancer (ICD-10 - Z12.31) PLAN OF TREATMENT Treatment Notes Test Name Order Date SCREENING MAMMO W CAD 2020-02-08 Next Appt Details Provider Name:Biju Pineda 2020-03-06 0 9:15:00 AM, [address], [place], [address], Provider Name:Biju Pineda 2020-03-13 0 9:30:00 AM, [address], [place], [address], Insurance Providers Payer Name Payer Address Payer Insured Patient Coverage Cover age Phone Name Relationship to Start Date End Date Insured Med[employer] [address] [address] [place] [phone] Leong [place] [address] [employer] [id number] MEDICARE Attn Part B [id number] Josr Newman [employer] Claims [address] [place] [id number]
== END 2020-03-13 12:19 | disposition home or self-care (01) ==
LOC: ER 09:54
DX: S09.90XA Unspecified injury of head, initial encounter (principal); W01.0XXA Fall on same level from slipping, tripping and stumbling without subsequent striking against object, initial encounter; Y93.9 Activity, unspecified; Y92.9 Unspecified place or not applicable; Z88.5 Allergy status to narcotic agent
CPT/HCPCS: 70450; 71045; 72040; 99283

== ENCOUNTER 2022-11-09 08:13 | Day surgery (SDC) | payer OTHER ==
[2022-11-09 08:59] LABS: Absolute Lymphocytes (CBC) 2.8 K/uL (0.7-4.9); Hematocrit 40.6 % (36.0-45.0); Lymphocytes % 28.7 % (15.3-44.8); MCV 83.5 fL (80-100); MPV 6.6 fL (7.6-11.3); Platelets 353 thou/uL (152-406); RBC Red Blood Cell Count 4.86 M/uL (3.86-4.86)
[2022-11-09] MEDS ORDERED: Ringers Lactate 1,000 ML IV ONE (09:00)
--- NOTE | 2022-11-09 09:20 | RAD REPORT ---
EXAM DESCRIPTION: RAD - Chest Pa And Lat (2 Views) - 11/09/2022 9:12 am CLINICAL HISTORY: PREPROCEDURE SCREENING. Hypertension COMPARISON: Chest Single View dated 03/13/2020; Chest Pa And Lat (2 Views) dated 10/19/2019; Chest Sin gle View dated 02/09/2019; Chest Pa And Lat (2 Views) dated 04/08/2017 TECHNIQUE: PA and lateral views of the chest were obtained. FINDINGS: The lungs are clear. Heart size is normal and central vasculature is within normal limits. No pleural effusion or pneumothorax seen. No acute bony finding noted. IMPRESSION: No acute cardiopulmonary process.
[2022-11-09] MEDS ORDERED: propofoL 200 MG/20 ML VIAL IV ONE (10:09)
[2022-11-09] MEDS ORDERED: LIDOCAINE 2% MPF 5 ML VIAL ONE (10:10)
[2022-11-09] MEDS: CEFAZOLIN SODIUM 1 GM/VIAL ONE ×2 (10:59→12:05)
[2022-11-09] MEDS ORDERED: MIDAZOLAM HCL 2 MG/2 ML INJ ONE (11:09)
[2022-11-09] MEDS ORDERED: FENTANYL CITR 100 MCG/2 ML ONE (11:09)
[2022-11-09] MEDS ORDERED: ONDANSETRON 4 MG/2 ML VIAL ONE (11:10)
--- NOTE | 2022-11-09 12:50 | P.BOP ---
Preoperative diagnosis: ulcerated R leg skin mass, tender left upper arm subQ mass Postoperative diagnosis: same Primary procedure: 1. Excisional biopsy of ulcerated R leg skin mass 2.5 x 2.5 cm Secondary procedure: 2. Excisional biopsy of tender L upper arm subQ mass 3x3 cm Estimated blood loss: <10cc Specimen: mass x 2 Findings: as above Anesthesia: General Complications: None Transferred to: Recovery Room Condition: Good
--- NOTE | 2022-11-09 12:59 | EKG ---
Test Date: 2022-11-09 Test Time: 08:32:36 Floor Person: KRISTY MEASUREMENT RESULTS: Intervals: Rate: 76 IL: 172 QRSD: 78 QT: 414 QTc: 465 [place]: P: 57 IL: 172 QRS: -28 T: 48 INTERPRETIVE STATEMENTS: Normal sinus rhythm Normal ECG Compared to ECG 10/19/2019 14:28:19 T-wave abnormality no longer present Electronically Signed On 11-09-22 12:58:28 CDT by Esau Stevenson
[2022-11-09] MEDS: HYDROMORPHONE HCL 1 MG/ML INJ ONE ×2 (13:07→13:13)
[2022-11-09] MEDS ORDERED: HYDROCODONE/APAP 7.5/325 MG TAB ONE (14:02)
[2022-11-09 14:10] VITALS: BP 123/66; TEMP 97.7; O2SAT 93
--- NOTE | 2022-11-10 12:09 | OP ---
Surgeon: Lukas Allison MD Preoperative Diagnoses: Ulcerated right leg skin mass and tender left upper arm subcutaneous mass. Postoperative Diagnoses: Ulcerated right leg skin mass and tender left upper arm subcutaneous mass. Procedures: 1.Excisional biopsy of ulcerated right leg skin mass 2.5 x 2.5 cm. 2.Excisional biopsy of tender left upper arm subcutaneous mass 3 x 3 cm. Estimated Blood Loss: Less than 10 cc. Specimen: Mass x2. Anesthesia: General plus local. Indication For Procedure: This is the case of a 72-year-old patient, who comes to us with 2 problems , tender mass in the left upper arm region. She wants that excised subcutaneous, nonmobile. She als o has the right leg skin mass located in the anterior region. Plumber previously did a shave b iopsy, but the patient wants that excised. It is an ulcerated mass in that region. We have to rule out any malignancy removing the entire mass and that is what patient wants. She understands the bene fits, alternatives, and risks of those conditions which include, but not limited to infection, bleedi ng, damage to adjacent structures, anesthesia complication, nonhealing wound, MO, and even . Mo re concern is on the right leg area. She has area with the varicosities and venous stasis disease, m ay be difficult to heal if she does not control the swelling, so we asked to pay special attention to that area. She still wants to have the lesion excised, so we prefer to that under controlled settin g in OR. Description Of Procedure: Once again, the patient was brought to the operating room, placed in supin e position. Anesthesia was done without complication. The areas of concern were marked by me and th e patient in the holding room. We started with the left arm first, although we prepped the arm and l eg in the usual sterile fashion individually to avoid cross contamination. On the area of left arm, we noticed a subcutaneous mass, so we made an incision on the skin. Incision was carried down deep t o subcutaneous tissue. We noticed a fatty tumor present that was carefully removed. It does not pe netrate the fascia or the muscle. Area was irrigated, hemostasis was obtained and then this was clos ed with a combination of 3-0 chromic in subcuticular fashion and Steri-Strips on top. Then, we put o ur direction to the right leg region. In that area, we had to remove the skin and the ulcer present that was there before the shave by municipal maintenance worker. The area was done in a wedge fashion and mass was excised and then we proceeded to close this in layers 3-0 chromic deep and then 2-0 nylon on top. Ir rigation was done and hemostasis before closure. Patient tolerated the procedure well. Patient was sent to recovery in stable condition. Sponge count and instrument counts were correct. JACKIE/JASWANT Voice ID: [id number] Report ID: [id number]
--- NOTE | 2022-11-10 12:45 | DS ---
Date of Discharge: 11/09/2022 Diagnoses: Ulcerated right leg skin mass, tender left upper arm subcutaneous mass. Procedure: Excisional biopsy of ulcerated right leg skin mass and left upper arm subcutaneous mass. Disposition: Home. Activity: As tolerated. No heavy lifting. Plan: We asked the patient to leave areas intact until she is seen by our office in 1 week. Medications: Previously called. JACKIE/JASWANT Voice ID: [id number] Report ID: [id number]
== END 2022-11-09 14:06 | disposition home or self-care (01) ==
LOC: OR 08:13
PROVIDERS: ATTEND Surgery
PROC: 0JBN0ZZ Excision of Right Lower Leg Subcutaneous Tissue and Fascia, Open Approach (ICD-10-PCS; principal; 2022-11-09 10:45)
PROC: 0JBF0ZZ Excision of Left Upper Arm Subcutaneous Tissue and Fascia, Open Approach (ICD-10-PCS; 2022-11-09 10:45)
DX: C76.51 Malignant neoplasm of right lower limb (principal); D17.22 Benign lipomatous neoplasm of skin and subcutaneous tissue of left arm
CPT/HCPCS: 11603; 93005; 85025; 80048; 36415; 88304; 88305; 71046; 24071; J2704; J2001; J2250; J3010; J1170; J2405; J7120; J0690

== ENCOUNTER 2024-01-12 07:54 | Day surgery (SDC) | payer OTHER ==
[2024-01-11 11:08] LABS: Absolute Basophils 0.1 K/uL (0-0.5); Absolute Eosinophils 0.2 K/uL (0-0.5); Absolute Lymphocytes (CBC) 3.1 K/uL (0.7-4.9); Absolute Monocytes 0.6 K/uL (0.1-1.3); Absolute Neutrophil 5.7 K/uL (1.8-8.0); Basophils % 0.9 % (0-1.3); Eosinophils % 1.8 % (0-4.4); Hematocrit 42.5 % (36.0-45.0); Hemoglobin 13.9 g/dL (12.0-15.0); Lymphocytes % 31.9 % (15.3-44.8); MCH 28.6 pg (27.0-35.0); MCHC 32.8 g/dL (32.0-36.0); MCV 87.4 fL (80-100); MPV 7.3 fL (7.6-11.3); Monocytes % 6.6 % (3.3-12.3); Neutrophils % 58.8 % (41.7-73.7); Platelets 327 thou/uL (152-406); RBC Red Blood Cell Count 4.86 M/uL (3.86-4.86); Red Cell Distribution Width 14.9 % (12.1-15.2)
--- NOTE | 2024-01-11 11:10 | RAD REPORT ---
Procedure: Chest Pa And Lat (2 Views) History: Preop for umbilical hernia repair Comparison: 2022 Findings: The lungs appear clear of acute infiltrate. Lungs are moderately hyperaerated. No significant pleural effusion noted. The heart is normal size. IMPRESSION: No acute abnormality is displayed.
[2024-01-11 11:17] LABS: Anion Gap 7.2 mEq/L (5.0-15.0); Potassium 4.2 mEq/L (3.5-5.1)
--- NOTE | 2024-01-11 12:24 | EKG ---
Test Date: 2024-01-11 Test Time: 10:36:04 Sales Planner: CODY MEASUREMENT RESULTS: Intervals: Rate: 80 WI: 174 QRSD: 78 QT: 394 QTc: 454 [place]: P: 67 WI: 174 QRS: -26 T: 70 INTERPRETIVE STATEMENTS: Normal sinus rhythm Normal ECG Compared to ECG 11/09/2022 08:32:36 No significant changes Electronically Signed On 01-11-24 12:24:13 CDT by Alton Oneill
[2024-01-11 12:46] LABS: Atypical Lymphocytes 2 %; Differential Total Cells Count 100; Eosinophils 1 % (0-3); Lymphocytes 28 % (15-42); Monocytes 5 % (0-10); Platelet Estimate ADEQ; Segmented Neutrophils 63 % (40-80)
[2024-01-11 12:47] LABS: Blood Morphology Comment NOT SEEN (NOT SEEN)
[2024-01-12] MEDS ORDERED: KETOROLAC 30 MG/ML INJ ONE (08:06)
[2024-01-12] MEDS ORDERED: LIDOCAINE 1% MPF 5 ML VIAL ONE (08:06)
[2024-01-12] MEDS ORDERED: ONDANSETRON 4 MG/2 ML VIAL ONE (08:06)
[2024-01-12] MEDS ORDERED: FENTANYL CITR 100 MCG/2 ML ONE ×2 (08:07→09:19)
[2024-01-12] MEDS ORDERED: MIDAZOLAM HCL 2 MG/2 ML INJ ONE (08:07)
[2024-01-12] MEDS ORDERED: propofoL 200 MG/20 ML VIAL IV ONE (08:07)
[2024-01-12] MEDS ORDERED: ROCURONIUM 50 MG/5 ML VIAL IV ONE (08:07)
[2024-01-12] MEDS: CEFAZOLIN SODIUM 1 GM/VIAL ONE (08:11)
[2024-01-12] MEDS: Ringers Lactate 1,000 ML IV ONE ×2 (08:20→08:30)
[2024-01-12] MEDS: METHYLPREDNISOLONE 40 MG INJ ONE (08:30)
[2024-01-12] MEDS ORDERED: EPHEDRINE SULF 50 MG/ML VIAL ONE (08:50)
[2024-01-12] MEDS ORDERED: GLYCOPYRROLATE 0.2 MG/ML SYR ONE ×2 (09:39→09:46)
[2024-01-12] MEDS ORDERED: NEOSTIGMINE 1 MG/ML -10 ML VIAL ONE (09:46)
--- NOTE | 2024-01-12 09:57 | P.BOP ---
Preoperative diagnosis: ventral incisional hernia Postoperative diagnosis: same, extensive intrabdominal adhesions Primary procedure: Laparoscopic repair of ventral incisional hernia with mesh 5 cm Estimated blood loss: <10cc Specimen: content Findings: as above Anesthesia: General Complications: None Implants: large ventralex mesh Transferred to: Recovery Room Condition: Good
[2024-01-12] MEDS ORDERED: NALOXONE 0.4 MG/ML VIAL ONE (10:00)
[2024-01-12] MEDS: HYDROMORPHONE HCL 1 MG/ML INJ ONE ×3 (10:30→11:20)
[2024-01-12] MEDS: ONDANSETRON 4 MG/2 ML VIAL ONE (10:34)
[2024-01-12] MEDS ORDERED: HYDROMORPHONE HCL 1 MG/ML INJ IV PRN (11:30)
[2024-01-12] MEDS: CEFOXITIN 1 GM in NA CHLORIDE 0.9% 50 ML IVPB SCH (12:41)
[2024-01-12] MEDS: NA CHLORIDE 0.9% 1,000 ML IV SCH (12:41)
[2024-01-12 13:26] VITALS: BMI 26.5
[2024-01-12] MEDS: ONDANSETRON 4 MG/2 ML VIAL IV PRN ×2 (14:48→20:41)
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
[2024-01-12] MEDS ORDERED: ACETAMINOPHEN 325 MG TABLET PO PRN (15:06)
[2024-01-12] MEDS: LEVALBUTEROL 0.63 MG/3 ML NEB NEB SCH (20:06)
[2024-01-12] MEDS: IPRATROPIUM BROM 0.5MG/2.5ML NEB SCH (20:06)
[2024-01-12] MEDS: FENTANYL CITR 100 MCG/2 ML IV PRN (20:42)
[2024-01-13 05:34] LABS: Absolute Basophils 0.1 K/uL (0-0.5); Absolute Lymphocytes (CBC) 2.1 K/uL (0.7-4.9); Absolute Monocytes 0.8 K/uL (0.1-1.3); Absolute Neutrophil 14.8 K/uL (1.8-8.0); Basophils % 0.5 % (0-1.3); Hematocrit 35.5 % (36.0-45.0); Hemoglobin 11.6 g/dL (12.0-15.0); Lymphocytes % 11.9 % (15.3-44.8); MCH 28.5 pg (27.0-35.0); MCHC 32.5 g/dL (32.0-36.0); MCV 87.6 fL (80-100); MPV 7.4 fL (7.6-11.3); Monocytes % 4.3 % (3.3-12.3); Platelets 285 thou/uL (152-406); RBC Red Blood Cell Count 4.05 M/uL (3.86-4.86); Red Cell Distribution Width 15.1 % (12.1-15.2)
[2024-01-13 05:37] LABS: Neutrophils % 83.3 % (41.7-73.7)
[2024-01-13 05:50] LABS: Anion Gap 7.5 mEq/L (5.0-15.0); Potassium 4.5 mEq/L (3.5-5.1)
[2024-01-13] MEDS: LEVOTHYROXINE SOD 0.125 MG TAB PO SCH (05:54)
[2024-01-13] MEDS: HYDROCODONE/APAP 5/325 MG TAB PO PRN (06:34)
[2024-01-13] MEDS: SIMETHICONE 40 MG/ 0.6 ML PO ONE (06:47)
[2024-01-13] MEDS ORDERED: NA CHLORIDE 0.9% 250 ML IV PRN (07:21)
[2024-01-13] MEDS: NA CHLORIDE 0.9% 250 ML IV ONE (07:34)
[2024-01-13] MEDS: ASPIRIN EC 81 MG TAB PO SCH (08:20)
[2024-01-13] MEDS: FOLIC ACID 1 MG TABLET PO SCH (08:20)
[2024-01-13] MEDS: EZETIMIBE 10 MG TAB PO SCH (08:20)
--- NOTE | 2024-01-13 08:24 | P.PN ---
Subjective Date of Service: 01/13/24 Chief Complaint: intractable post op pain 73-year-old female with a past medical history of COPD, lupus, hyperlipidemia, hypothyroidism, is status post 01/12/24 laparoscopic repair of ventral hernia with mesh., By Dr. Allison. [facility] medicine team has been requested to see patient for medical management of intractable pain, nausea, hypotension. On evaluation patient is awake alert, oriented x 3, answers questions appropriately, blood pressure soft 101/56, as needed Fentanyl 12.5 added for intractable abdominal pain 8 out of 10. Low-dose fentanyl should not lower her blood pressure. Zofran has been added every 4 hours for nausea. Will follow patient for comorbidities and treat accordingly. Continuous pulse ox added to bedside until more alert. Some c/o chest pain with rad to back overnight. EKG clear, tx with simethicone and will continue to assess Review of Systems 10-point ROS is otherwise unremarkable General: As per HPI Eyes: Unremarkable ENT: Unremarkable Respiratory: Unremarkable Cardiovascular: Chest Pain Gastrointestinal: Other (no flatus) Genitourinary: Unremarkable Musculoskeletal: Unremarkable Integumentary: Unremarkable Neurological: Unremarkable Physical Examination - Vital Signs Temperature: 98.1 F Blood Pressure: 100/60 Pulse: 90 Respirations: 18 Pulse Ox (%): 91 - Physical Exam General: Alert, In no apparent distress, Oriented x3 HEENT: Atraumatic, Normocephalic Neck: Supple Respiratory: Normal air movement, Other (encouraged IS) Cardiovascular: No edema, Regular rate/rhythm, Other (mild tachycardia) Capillary refill: <2 Seconds Gastrointestinal: Hypoactive, Tenderness (RLQ) Musculoskeletal: No clubbing Integumentary: No rashes, Other (weston to umbilicus visible, no d/c, other dressing dry and intact) Neurological: Normal speech, Normal tone, Normal affect Lymphatics: No axilla or inguinal lymphadenopathy Urinary: Other (getting up to void, has scd's in place) External genitalia: Deferred Rectal: Deferred - Studies Laboratory Data (last 24 hrs) 01/13/24 01/13/24 05:10 05:10 WBC 17.80 H Hgb 11.6 L Hct 35.5 L Plt Count 285 Sodium 138 Potassium 4.5 BUN 16 Creatinine 0.73 Glucose 119 H Assessment And Plan - Plan - Problems (1) S/P laparoscopic hernia repair Current Visit: Yes Status: Acute (2) Intractable pain Current Visit: Yes Status: Acute (3) Nausea & vomiting Current Visit: Yes Status: Acute (4) COPD (chronic obstructive pulmonary disease) Current Visit: Yes Status: Acute (5) Lupus (systemic lupus erythematosus) Current Visit: Yes Status: Acute (6) Hypertension Current Visit: Yes Status: Acute Conclusions/Impression: Assessment plan Fentanyl low-dose 12.5 for pain Zofran for nausea, Continuous pulse ox monitor change until more alert Clear liquid diet, advance per surgery Resume meds for COPD, hypothyroidism, DVT per surgeon Diet advance per surgery Full code Disposition pending hospital course, previously home prior 01/13/24 Ms. Newman did c/o some chest pain overnight, relieved by burping. Scant bowel sounds this am. No flatus. EKG non-worrisome. Simethicone 250mg po now and q6h ordered Labs pending mildly tachycardic this am. Will give 250ml NS bolus. Will continue to follow with Dr. Allison Critical Care: No
[2024-01-13] MEDS: SIMETHICONE 125 MG TAB PO SCH (09:09)
[2024-01-13] MEDS: SIMETHICONE 125 MG TAB PO PRN (10:13)
[2024-01-13 11:06] VITALS: O2SAT 93
[2024-01-13] MEDS ORDERED: SIMETHICONE 125 MG TAB PO SCH (13:00)
[2024-01-13 16:47] VITALS: BP 119/59; TEMP 98.5
--- NOTE | 2024-01-13 16:51 | EKG ---
Test Date: 2024-01-13 Test Time: 06:25:38 Warp Placer: RAUL MEASUREMENT RESULTS: Intervals: Rate: 90 DC: 188 QRSD: 82 QT: 390 QTc: 477 [place]: P: 72 DC: 188 QRS: 4 T: 74 INTERPRETIVE STATEMENTS: Normal sinus rhythm Low voltage QRS Borderline ECG Compared to ECG 01/11/2024 10:36:04 Low QRS voltage now present Electronically Signed On 01-13-24 16:50:05 CDT by Esau Stevenson
--- NOTE | 2024-01-13 17:05 | P.DS ---
Discharge Date: 01/13/24 Disposition: ROUTINE DISCHARGE Discharge Condition: GOOD Reason for Admission: intractable post op pain Hospital Course: unremarkable Vital Signs/Physical Exam: Temp Pulse Resp BP Pulse Ox 98.5 F 85 19 119/59 L 94 01/13/24 16:00 01/13/24 16:00 01/13/24 16:00 01/13/24 16:00 01/13/24 16:00 General: Alert, In no apparent distress, Oriented x3, Cooperative HEENT: Normocephalic, PERRLA, EOMI Neck: Supple Respiratory: Normal air movement Cardiovascular: No edema Gastrointestinal: Soft and benign, No rebound, No guarding Integumentary: No rashes, No breakdown, No erythema, No warmth, No cyanosis Neurological: Normal speech, Normal tone Laboratory Data at Discharge: WBC 17.80 thou/uL (4.3-10.9) H 01/13/24 05:10 Hgb 11.6 g/dL (12.0-15.0) L 01/13/24 05:10 Hct 35.5 % (36.0-45.0) L 01/13/24 05:10 Plt Count 285 thou/uL (152-406) 01/13/24 05:10 Sodium 138 mEq/L (136-145) 01/13/24 05:10 Potassium 4.5 mEq/L (3.5-5.1) 01/13/24 05:10 BUN 16 mg/dL (7-18) 01/13/24 05:10 Creatinine 0.73 mg/dL (0.55-1.02) 01/13/24 05:10 Glucose 119 mg/dL (74-106) H 01/13/24 05:10 Home Medications: Ergocalciferol (Vitamin D2) [Vitamin D 50,000 Unit Cap] 50,000 unit PO SEECOM 10/19/19 Acetaminophen [Tylenol] 1 - 2 tab PO PRN PRN 11/09/22 Ezetimibe 10 mg PO DAILY 11/09/22 Alirocumab [Praluent Pen] 75 mg SQ SEECOM 01/11/24 Aspirin [Low Dose Aspirin EC] 81 mg PO DAILY 01/11/24 Folic Acid 1 mg PO DAILY 01/11/24 Levothyroxine [Synthroid] 125 mcg PO [id number] 01/11/24 Nitroglycerin [Nitrostat] 0.4 mg SL PRN PRN 01/11/24 predniSONE [Deltasone] 5 mg PO BID 01/11/24 Codeine/APAP [Tylenol W/Codeine #3 tab] 1 tab PO Q6HP PRN #1 tab 01/12/24 New Medications: Codeine/APAP [Tylenol W/Codeine #3 tab] 1 tab PO Q6HP PRN #1 tab PRN Reason: Pain Physician Discharge Instructions: Keep surgical area dry for 24h then may remove outer dressing and shower. Cover weston with antibiotic ointment and gauze. Diet: AHA Activity: No lifting more than 10 lbs Followup: Lukas Allison MD [ACTIVE - CAN ADMIT] - 1 Week Biju Pineda, DO [Primary Care Provider] - If your Symptoms Worsen
--- NOTE | 2024-01-14 04:20 | OP ---
Date of Procedure: 01/13/2024 Surgeon: Lukas Allison MD Diagnosis: Ventral incisional hernia. Postoperative Diagnoses: Ventral incisional hernia plus extensive intra-abdominal adhesions. Procedures: Laparoscopic repair of ventral incisional hernia with mesh, about 5 cm. Laparoscopic ly sis of adhesions. Estimated Blood Loss: Less than 10 cc. Estimated Blood Loss: Less than 10 mL. Specimen: Hernia content. Finding: Extensive intra-abdominal adhesions to the point that have the case was done just doing amalia is of adhesions. This patient has previous midline incisions from gynecological procedures that attr acted bowel and omentum to that region and needed to be removed, also allowing the hernia to be acces s to intestines too, so all that area have to be removed. Anesthesia: General plus local. Implant: A Ventralex mesh. Indications: This is a case of a 73-year-old patient who comes to us with periumbilical ventral jen on. The imaging showing a hernia present in that region. The benefits, alternatives, and risks of l aparoscopic possible open ventral hernia repair fully explained, which include, but not limited to, i nfection, bleeding, damage to adjacent structures, anesthesia complication, recurrence, NE, and even . She also understands this may not relieve the symptoms, she might need more than one surgical intervention. We also explained to her the possible need of mesh in that area. So, pros and cons o f mesh placement were discussed to her satisfaction. She has multiple incisions in the midline. Thi s may have adhesions belt underneath. Depends on the amount of adhesions that we will remove she may or may not be at least overnight admitted for pain control. At this moment, I could not determine a t the beginning the extent of the adhesions. She understood and signed a consent. Description Of Procedure: The patient was brought to the operating room, placed in supine position, anesthesia was without complication. Abdominal area was prepped and draped in usual sterile fashion. Local anesthesia was applied after time-out and then incision was made in the periumbilical region. Incision was carried down to fascia, which was opened under direct vision. We noted the patient bass d a hernia in that region. Once we went inside and palpated, we noticed a lot of adhesions and anoth er hernia just below the umbilical region. I put a Mello trocar through it, obtained pneumoperitone um, and this allowed me to visualize the area better. I put a 5 mm trocar to the left and right side of the abdomen. This allowed me to change the camera and then visualize the midline. We noticed ex tensive intra-abdominal adhesions. Some of them tenting the small bowel against the abdominal wall. So, at this moment, we decided to open the ligature and do lysis of adhesions. We had to remove and reduce the hernia and also remove the adhesions on the lower part of the abdomen and periumbilical. This allowed me not only to remove adhesions and release the bowel, but also to reinforce the area w ith mesh since when we initiated this procedure we noticed the mesh to be opened in 2 different areas and very friable. At that moment, we then identified the second mesh. Once we removed the adhesion s, we were able to make an umbilical incision a little bit bigger and incorporated these two defects into one. The fascial edges were cleaned. We used Vicryl #1 to approximate each side of the fascia and then put a mesh in that region that covered the area about 3-5 cm. Once we had the defects tied with multiple [id number] stitches, we were able to pull the mesh up through the strap, and under direct visualization laparoscopically fixed that with the ligature with a SorbaFix device. At that moment, we had enough sutures to be able to remove the strap of the mesh and then finally closed the fascia edges with [id number] fashion until we had air leakproof situation. After that, we went laparoscopically again and fixed these mesh circumferentially to diminish the chance of intestines to come in between. Once we had that, we went down and looked at the area of the previous lysis of adh esions, but once again, we had no enterotomies and no bleeding. At that moment then, we p roceeded to remove the trocars under direct vision. Deflated the pneumoperitoneum. Closed the subcu taneous tissue of the skin with 3-0 chromic and then closed the skin with weston. Sponge count, ins trument counts were correct. Patient tolerated the procedure well. Patient was sent to recovery in stable condition. When patient was awakened, we discussed that with the primary doctor. She is havi ng too much pain at this moment. I believe she is going to develop an ileus and she wants to stay ov ernight in the hospital. I discussed that with the patient's . They did agree too, and in th at case, we admitted her for 23 hours observation that will allow us to have some better pain control . We are going to consult the hospitalist since Dr. Pineda is the primary doctor, but he does not adm it in this institution as far as I know. The patient tolerated the procedure well. JACKIE/JASWANT Voice ID: [id number] Report ID: [id number]
[2024-01-17] MEDS ORDERED: DRISDOL (VITAMIN D=ERGOCALCIFEROL) 50000 UNIT CAP PO SCH (09:00)
== END 2024-01-13 18:15 | disposition home or self-care (01) ==
LOC: OR 07:54 → 2ND 11:49 → OR 01-13 18:15
PROVIDERS: ATTEND Surgery
PROC: 0DNW4ZZ Release Peritoneum, Percutaneous Endoscopic Approach (ICD-10-PCS; 2024-01-12)
PROC: 0WUF4JZ Supplement Abdominal Wall with Synthetic Substitute, Percutaneous Endoscopic Approach (ICD-10-PCS; principal; 2024-01-12 09:15)
DX: K43.2 Incisional hernia without obstruction or gangrene (principal); K66.0 Peritoneal adhesions (postprocedural) (postinfection)
CPT/HCPCS: 49593; 93005 ×2; 85025 ×2; 80048 ×2; 36415 ×2; 88302; 71046; 97116; 97161; 97530; 94010; 94640; 94760; 49329; J2704; J2710; J2001; J7644 ×4; J2250; J3010 ×5; J7614 ×4; J1170 ×3; J0694 ×3; J2405 ×5; J7120 ×2; J7030 ×2; J2919; J0690; J2310